=== PATIENT | female | born 1935 | race Caucasian/White ===

== ENCOUNTER 2017-09-06 11:57 | Inpatient (IN) | payer MEDICARE, OTHER ==
[2017-09-06 12:34] LABS: #Lymphocytes 0.9 thou/uL (1.20-3.40); #Monocytes 0.6 thou/uL (0.11-0.59); #Neutrophils 13.5 thou/uL (1.40-6.50); %Eosinophils 0.3 % (0.0-10.0); %Monocytes 3.7 % (0.0-10.0); Hemoglobin 12.7 g/dL (12.0-16.0); Mean Corpuscular HGB CONC 33.1 g/dL (32.0-36.0); Mean Corpuscular Hemoglobin 29.7 pg (27.0-31.0); Mean Corpuscular Volume 89.8 fl (81.0-99.0); Mean Platelet Volume 5.8 fL (7.4-10.4); Platelet Count 248 thou/uL (130-400); RBC Distribution Width 12.3 % (11.5-14.5); Red Blood Cell (RBC) Count 4.29 mill/uL (4.20-5.40)
--- NOTE | 2017-09-06 12:55 | RAD ---
TWO VIEWS OF THE LEFT HIP: Comparison: None. History: Fall, left hip pain. FINDINGS: Two views of the left hip shows destruction of the trabecular markings in the femoral neck and there may be a nondisplaced femoral neck fracture. Surrounding soft tissue swelling is seen. No degenerativ e changes are seen in the left hip joint. IMPRESSION: Left femoral neck fracture. POS: ALEXANDER
[2017-09-06 12:58] LABS: ALT (SGPT) 21 U/L (8-55); AST (SGOT) 24 U/L (5-34); Albumin 3.7 g/dL (3.4-4.8); Alkaline Phosphatase 71 U/L (40-150); Anion Gap 12 mmol/L (10-20); BUN (Urea Nitrogen) 18 mg/dL (9.8-20.1); Bilirubin, Total 0.4 mg/dL (0.2-1.2); Calc. Creatinine Clearance 0 mL/min (70-130); Calcium 8.6 mg/dL (7.8-10.44); Carbon Dioxide 24 mmol/L (23-31); Chloride 104 mmol/L (98-107); Estimated GFR-MDRD 74; Globulin 2.5 g/dL (2.4-3.5); Glucose 114 mg/dL (83-110); Potassium 3.9 mmol/L (3.5-5.1); Protein, Total 6.2 g/dL (6.0-8.3); Sodium 136 mmol/L (136-145)
--- NOTE | 2017-09-06 12:58 | RAD ---
SINGLE VIEW OF THE PELVIS: COMPARISON: None. HISTORY: Fall with left hip pain. FINDINGS: A single view of the left hip shows a fracture of the left femoral neck. Surrounding soft tissue swe lling is seen. No other fractures or dislocations are seen. No degenerative changes are seen in eit her hip. IMPRESSION: Left femoral neck fracture. POS: ANASTASIA
--- NOTE | 2017-09-06 13:00 | RAD ---
SINGLE VIEW OF THE CHEST: COMPARISON: 09/11/06. HISTORY: Fall with left hip fracture. Shortness of breath. FINDINGS: A single view of the chest shows a normal-size cardiomediastinal silhouette. There is a spiculated m ass projecting over the right upper lobe measuring 4.7 cm in greatest dimension. No pleural effusion is seen. IMPRESSION: Right upper lobe spiculated mass. A CT of the chest with contrast is recommended for further evaluat ion. POS: ANASTASIA
[2017-09-06 13:02] LABS: Troponin I Less than 0.010 ng/mL (< 0.028)
[2017-09-06 14:00] LABS: Bilirubin Negative (Negative); Blood, Urine Trace (Negative); Clarity CLEAR (Clear); Glucose, Urine (Dipstick) Negative (Negative); Leukocyte Large (Negative); Nitrite Negative (Negative); Protein, Urine (Dipstick) Negative (Neg-Trace); Specific Gravity, Urine 1.012 (1.002-1.036); pH, Urine 6.5 (5.0-9.0)
[2017-09-06 14:14] LABS: Bacteria/HPF None Seen HPF (None Seen); Hyaline Casts/LPF 0-3 HYALINE CAST LPF (0-3 Hyaline); Pathc Cast-AUWi Flag 0.14 (0-2.49); RBC/HPF 0-3 HPF (0-3); Squamous Epithelial None Seen HPF (0-3)
[2017-09-06] MEDS ORDERED: traMADol HCl 50 MG TAB PO PRN (16:20)
[2017-09-06] MEDS ORDERED: Dextrose 50% Abboject 50 ML SYRINGE SLOW IVP PRN (16:20)
[2017-09-06] MEDS ORDERED: Dextrose 5% in Water 1,000 ML IV PRN (16:20)
[2017-09-06] MEDS ORDERED: Morphine 4 MG/ML VIAL SLOW IVP PRN (16:20)
--- NOTE | 2017-09-06 16:26 | CON ---
DATE OF CONSULTATION: 09/06/2017 CHIEF COMPLAINT: Left hip pain. HISTORY OF PRESENT ILLNESS: Ms. Acevedo is an 82-year-old female who fell. She lost her balance. She landed on her left side. She had difficulty ambulating and had severe pain in the left hip. She was taken to the Emergency Department. X-rays have shown a nondisplaced left femoral neck fracture. Th e patient is active at baseline. She frequently walks for exercise out of the house. She uses a can e, but no walker. She lives independently and still does work outside and inside the house. She rep orts being in fair health recently. She does take oxygen at home at night, but otherwise denies curr ent issues with her health. PAST MEDICAL HISTORY: COPD disease, on home oxygen at night and when she is exercising. Coronary ar isael disease, she sees a instrumentation controls engineer as well as Pulmonary doctor. History of congestive heart failu re. ALLERGIES: No known allergies. MEDICATIONS: Unknown list. SOCIAL HISTORY: The patient denies any tobacco, alcohol or drug use. FAMILY MEDICAL HISTORY: Noncontributory. REVIEW OF SYSTEMS: Positive for left hip pain. She is talkative. She denies other positives on 10- point review of systems. IMAGES: X-rays demonstrate a nondisplaced valgus impacted left femoral neck fracture, otherwise nega tive. PHYSICAL EXAMINATION: VITAL SIGNS: Stable. The patient was found to have a pulse oximetry reading of 92%, this improved w ith oxygen. Blood pressure is 181/85 and temperature is 97.7. GENERAL: She is sitting upright, no apparent distress, talkative. HEENT: The patient is getting nasal cannula oxygen, otherwise atraumatic. RESPIRATORY: Again, on oxygen, but breathing comfortably. MUSCULOSKELETAL: The patient's right lower extremity is atraumatic. The left lower extremity has pa in with motion. She is sitting with her hips flexed. She is neurovascularly intact in the foot and ankle and has a palpable dorsalis pedis pulse. IMPRESSION: Left femoral neck fracture in an elderly female. PLAN: At this point, I had a long discussion with the patient regarding treatment options, these wou ld be nonoperative versus surgical. Surgical stabilization will give her likely the best outcome, so that she does not go on to have displacement of her femoral neck fracture and she can mobilize weigh tbearing as tolerated. We can do percutaneous screw fixation hopefully under local anesthetic or a s aric anesthetic. She will be optimized for surgery. She will have adequate pain control and DVT pr ophylaxis. She will have antibiotic prophylaxis. Pulmonary treatment is needed. We will continue o xygen.
[2017-09-06] MEDS ORDERED: Ibuprofen 600 MG TAB PO SCH (16:30)
[2017-09-06] MEDS ORDERED: Water For Inject, Bacteriostat 30 ML ONE (16:33)
[2017-09-06 17:24] LABS: Troponin I 0.062 ng/mL (< 0.028)
--- NOTE | 2017-09-06 18:52 | HP ---
DATE OF ADMISSION: 09/06/2017 ADMITTING PHYSICIAN: Sachin Smith DO CONSULTING PHYSICIAN: Anoop Doherty M.D. CHIEF COMPLAINT: Left hip pain, status post ground level fall. HISTORY OF PRESENT ILLNESS: Mrs. Acevedo is an 82-year-old female with history of hypertension, COPD on home oxygen, possibly congestive heart failure, who was in her usual state of health this morning wh en she got caught on her oxygen cord and tripped, landing on her left side. She felt immediate pain to her left side. She denies head trauma or loss of consciousness. She was able to call her grandso n, who came and assisted her in getting up. She was transported by ground EMS [facility] she was evaluated and found to have a left nondisplaced femoral neck fracture. She was also found to have a urinary tract infection as well as an incidentally discovered pulmonary mass, which was daniel cribed as a spiculated measuring 4.7 cm in the right lung. Upon admission to the ED, the patient was noted to be hypoxic in the low 80s, requiring 4 liters nasa l cannula oxygen. Her sats improved to approximately 95% on 4 liters. However, the patient did cont inue to show signs of respiratory distress including a marked accessory muscle use and lip pursing. The patient reports that she only uses 1.5 liters oxygen at home and that she is able to do without i t entirely except at night and when she is being active. Given her respiratory distress, she was sta rted on a nebulizer treatment in the emergency room, which did improve her work of breathing somewhat . Dr. Anoop Doherty of Orthopedics was consulted for surgical management of her left hip. [facility] was asked to admit. Given her respiratory distress and overall state of health, the decis ion was made to admit the patient to the Intermediate Care Unit. Upon exam, the patient reports that her pain is mild and located exclusively in the left hip and left groin region. She denies radiating pain, numbness or tingling. She had initially reported chest pa in to the ER physician, but denied chest pain upon my exam. She denied dizziness, lightheadedness, n ausea or vomiting. HOME MEDICATIONS: Her home medications include atorvastatin 10 mg, lorazepam 0.5 mg, furosemide 20 m g, prednisone 5 mg, metoprolol succinate 25 mg, Eliquis 2.5 mg, and hydroxyzine 10 mg. PAST MEDICAL HISTORY: The patient reports a history of chronic obstructive pulmonary disease as well as heart problems. She is unable to state exact nature of her heart problems, but said she sees Dr. Robert Perea in Cardiology. PAST SURGICAL HISTORY: The patient reports a remote history of appendectomy as well as a remote hist ory of gum surgery. ALLERGIES: The patient denies any known drug allergies. SOCIAL HISTORY: The patient reports a [id number] history of smoking. She reports quitting 4 years ago. She does endorse occasional alcohol use approximately two times a year. She denies other drug use. She lives at home in a one story house. CODE STATUS: The patient reports her code status is FULL CODE. REVIEW OF SYSTEMS: A 10 point review of systems was negative except as mentioned in the HPI. PHYSICAL EXAMINATION: VITAL SIGNS: Blood pressure 125/79, pulse 84, respirations 24, temperature 99.1, O2 sat 96% on 4 lit ers. GENERAL APPEARANCE: The patient is a somewhat frail appearing elderly female, who appears to be in m oderate to severe respiratory distress. HEENT: Normocephalic and atraumatic. Eyes: Pupils are equal, round, and reactive to light and acco mmodation. Extraocular movements are intact. Ears: Atraumatic. Nose: Nares patent without discha rge. Mouth: Atraumatic. She is edentulous with upper and lower dentures. NECK: Trachea is midline. No cervical spine tenderness. RESPIRATORY: She has bilateral wheezes. No rales or rhonchi. She has a nasal cannula in place up t o 4 liters. She has marked accessory muscle use. CARDIOVASCULAR: She has a regular rate and rhythm. No murmurs, gallops or rubs were auscultated. ABDOMEN: Her abdomen was soft, nontender and nondistended. She has positive bowel sounds. EXTREMITIES: The patient is neurovascularly intact x4. She has no dependent edema. She has some te nderness to palpation over the greater trochanter on her left leg. SKIN: Her skin is warm and dry. No ecchymosis, no abrasions. NEUROLOGIC: The patient's GCS is 15. She has no focal deficits. PSYCHIATRIC: She is alert and oriented x3. LABORATORY DATA: Significant for elevated white blood cell count of 15. Her chemistry profile is es sentially unremarkable. Her cardiac enzymes are significant for an elevated CK-MB of 10. She has a normal troponin at less than 0.010. She does have an elevated BNP of 235.5. Her liver function test s are unremarkable. IMAGING: Chest x-ray: Right upper lobe spiculated mass. CT of the chest with contrast is recommended for fur ther evaluation. Pelvis x-ray: Left femoral neck fracture. Hip x-ray. Left femoral neck fracture. ASSESSMENT: 1. Left femoral neck fracture. 2. Chronic obstructive pulmonary disease exacerbation. 3. Elevated CK-MB with abnormal EKG. 4. Urinary tract infection. 5. Meets systemic inflammatory response syndrome criteria for sepsis. 6. History of hypertension, present on admission. PLAN: 1. Admit to CU. 2. Start Solu-Medrol 40 mg IVP q.6 hours. 3. Pulmicort and Brovana per recommendation of Dr. Higginbotham. I appreciate recommendations. 4. Bactrim for UTI. 5. We will trend troponins at 3 and 6 hours. 6. The patient meets systemic inflammatory response syndrome criteria for sepsis. We will continue to monitor vital signs and fluid status with strict ins and outs. 7. Plan will be to go to the OR with Dr. Doherty tomorrow for screw fixation of her left hip as lo ng as she is medically stable. This patient was seen and examined along with Dr. Sachin Smith, who agrees with the assessment and p
--- NOTE | 2017-09-06 19:27 | CON ---
DATE OF CONSULTATION: 09/06/2017 CONSULTING PHYSICIAN: Sachin Smith D.O. REASON FOR CONSULTATION: COPD. HISTORY OF THE PRESENT ILLNESS: The patient is an 82-year-old female with severe COPD managed. She came in today after a hip fracture. She is typically managed over in [place] by Dr. Cordero. She is on home oxygen at 2-4 liters nasal cannula 24 hours daily. She smoked up until 4 years ago. She does very poor at home at baseline. She says she uses nebulization therapy, but does not know her other medications. PAST MEDICAL HISTORY: 1. COPD. 2. Coronary artery disease. ALLERGIES: None. FAMILY MEDICAL HISTORY: List is not available for review. SOCIAL HISTORY: Quit smoking 4 years ago. Does not consume alcohol. REVIEW OF SYSTEMS: A 10-point review of systems otherwise negative. PHYSICAL EXAMINATION: VITAL SIGNS: Heart rate 92, O2 sat 92% on 4 liters, pulse 111 and respirations 18. HEENT: Unremarkable. NECK: No JVD. LUNGS: Diffuse wheezing bilaterally. CARDIOVASCULAR: S1 and S2 regular. ABDOMEN: Soft and nontender. EXTREMITIES: No clubbing, cyanosis or edema. She has severe muscle wasting. LABORATORY AND IMAGING DATA: Sodium 136, potassium 3.9, chloride 104, CO2 of 24 , BUN 18, creatinine 0.7, glucose 114 and troponin 0.06. White blood cell count 15, hematocrit 38.5 and platelet count 248. Chest x-ray demonstrates a 47 mm mass-like density in the right upper lobe. This ultimately needs to be further worked up with a CT of the chest. Film was personally reviewed by myself. ASSESSMENT: 1. Lung mass. 2. Chronic obstructive pulmonary disease exacerbation. 3. Hip fracture. PLAN: 1. CT of the chest. Further workup for lung mass. 2. Nebulization treatments, IV steroids and low flow oxygen. 3. She is at high risk for any kind of planned surgery that needs to be understood before undertaking the procedure. I do not think she is quite medically stable from a pulmonary standpoint to have this done yet. 4. The fracture may be malignant in nature. Therefore, we will check the CT scan at the latest by tomorrow. 70 min time was spent on this consult. Of that time, >50% was spent with the patient and/or on the patients unit. DEE DEE
[2017-09-06 20:04] LABS: Troponin I 0.132 ng/mL (< 0.028)
--- NOTE | 2017-09-06 20:40 | CT ---
CT THORAX WITHOUT CONTRAST: INDICATIONS: History of right lung mass. COMPARISON: Chest radiograph dated 09/06/2017. FINDINGS: There is an area of air space consolidation within the right upper lobe, likely corresponding to a ra diographic abnormality. An additional focus of air space consolidation is seen within the right lowe r lobe. There is superimposed severe emphysema. There are prominent vascular calcifications involving the thoracic aorta and coronary arteries. The ascending aorta is mildly ectatic, measuring 2.7 cm. The aortic arch measures 3.6 cm. The descendin g thoracic aorta measures approximately 3 cm. There is a small pericardial effusion. There is a small hiatal hernia. There is diffuse osteopenia. There is mild thoracolumbar scoliosis. There is a small superior endplate compression abnormality of T5, of undetermined chronicity. IMPRESSION: 1. Areas suspicious for multifocal pneumonia involving the right upper lobe and right lower lobe. R ecommend CT followup to resolution. 2. There is severe chronic obstructive pulmonary disease. 3. 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 4. Age indeterminate T5 superior endplate compression abnormality. POS: ANASTASIA
[2017-09-06] MEDS: Acetaminophen 500 MG TAB PO SCH ×2 (21:06→23:58)
[2017-09-06] MEDS: traMADol HCl 50 MG TAB PO SCH ×2 (21:06→23:58)
[2017-09-06] MEDS: Famotidine 20 MG TAB PO SCH (21:08)
[2017-09-06] MEDS: Sulfameth/Trimethoprim DS 800-160mg TAB PO SCH (21:08)
[2017-09-06] MEDS: Ibuprofen 200 MG TAB PO SCH ×2 (21:31→23:58)
[2017-09-06] MEDS: Ondansetron ODT 4 MG TAB PO PRN (21:51)
[2017-09-06] MEDS: Arformoterol 15 MCG/2 ML NEB NEB SCH (22:10)
[2017-09-06] MEDS: Budesonide 0.5 MG/2 ML NEB INH SCH (22:10)
--- NOTE | 2017-09-06 22:48 | PRG ---
DATE OF SERVICE: 09/06/2017 SUBJECTIVE: Ms. Baeza is an 82-year-old female who reportedly was admitted this afternoon status pos t ground level fall, when she sustained a left femoral neck fracture. The patient has just been move d from the emergency room up to the [facility], and she is just now getting settled in. The patient has be en evaluated by the primary trauma team and Dr. Higginbotham who is evaluating her for her chronic respira tory condition and one mass that was noted on her CTs. At this time, the patient has no complaints. She is extremely talkative and is only concerned with having her sleeping pills. Otherwise, we will check back with the patient once she has gotten settled in, the nurses are able to do their full ass essment and get her vitals, but by report, she had no issues in the emergency department and her oxyg en saturation staying in the 90s on 4 liters via nasal cannula.
[2017-09-07 04:48] LABS: #Lymphocytes 0.6 thou/uL (1.20-3.40); #Monocytes 0.1 thou/uL (0.11-0.59); #Neutrophils 8.4 thou/uL (1.40-6.50); %Eosinophils 0.3 % (0.0-10.0); %Lymphocytes 6.6 % (21.0-51.0); %Monocytes 1.2 % (0.0-10.0); Hemoglobin 12.4 g/dL (12.0-16.0); Mean Corpuscular HGB CONC 33.3 g/dL (32.0-36.0); Mean Corpuscular Hemoglobin 29.8 pg (27.0-31.0); Mean Corpuscular Volume 89.5 fl (81.0-99.0); Mean Platelet Volume 6.5 fL (7.4-10.4); Platelet Count 238 thou/uL (130-400); RBC Distribution Width 12.2 % (11.5-14.5); Red Blood Cell (RBC) Count 4.15 mill/uL (4.20-5.40); White Blood Cell (WBC) Count 9.1 thou/uL (4.8-10.8)
[2017-09-07 05:13] LABS: Anion Gap 13 mmol/L (10-20); BUN (Urea Nitrogen) 23 mg/dL (9.8-20.1); Calc. Creatinine Clearance 34 mL/min (70-130); Calcium 8.6 mg/dL (7.8-10.44); Carbon Dioxide 25 mmol/L (23-31); Chloride 103 mmol/L (98-107); Estimated GFR-MDRD 54; Glucose 186 mg/dL (83-110); Potassium 4.3 mmol/L (3.5-5.1); Sodium 137 mmol/L (136-145)
[2017-09-07] MEDS: Ibuprofen 200 MG TAB PO SCH ×3 (05:36→18:29)
[2017-09-07] MEDS: Acetaminophen 500 MG TAB PO SCH ×3 (05:36→18:29)
[2017-09-07] MEDS: traMADol HCl 50 MG TAB PO SCH ×3 (05:36→18:29)
[2017-09-07 07:15] LABS: CKMB 5.1 ng/mL (0-6.6); Troponin I 0.127 ng/mL (< 0.028)
[2017-09-07] MEDS: Arformoterol 15 MCG/2 ML NEB NEB SCH ×2 (07:55→18:32)
[2017-09-07] MEDS: Budesonide 0.5 MG/2 ML NEB INH SCH ×2 (08:00→18:32)
[2017-09-07] MEDS ORDERED: Prevnar 13-Val Conj/PF 0.5 ML SYRINGE IM ONE (09:00)
[2017-09-07] MEDS: Famotidine 20 MG TAB PO SCH ×2 (09:03→21:19)
[2017-09-07] MEDS: Sulfameth/Trimethoprim DS 800-160mg TAB PO SCH (09:03)
--- NOTE | 2017-09-07 09:47 | PDOC.PULPN ---
Progress Note: Subj/Obj - Subjective Date: 09/07/17 Time: 09:45 Narrative: no change - Objective Allergies/Adverse Reactions: Allergies Allergy/AdvReac Type Severity Reaction Status Date / Time No Known Drug Allergies Allergy Verified 09/07/17 03:40 MAR Reviewed: Yes Vital Signs: Vital Signs Temp 96.8 F L 09/07/17 07:19 Pulse 71 09/07/17 09:00 Resp 20 09/07/17 09:00 BP 112/55 L 09/07/17 09:00 Pulse Ox 91 L 09/07/17 09:00 Intake & Output 09/06/17 09/07/17 09/07/17 18:59 06:59 18:59 Intake Total 500 Balance 500 Weight 109 lb 1.6 oz Intake: Oral 500 Other: Voiding Method Diaper # Urine Diapers 4 Progress Note: Exam - Physical Exam Constitutional: NAD HEENT: PERRLA Neck: no nodes, no JVD Cardiovascular: RRR Focused Respiratory Location: decreased breath sounds: Right, Left Gastrointestinal: soft, non-tender Musculoskeletal: no edema Psychiatric: normal affect, A&O x 3 Skin: no rash Progress Note: Data - Labs Result Diagrams: 09/07/17 04:26 09/07/17 04:26 - Radiology Interpretation CT scan - chest Status: image reviewed by me (looks like old scarring in RUL, doubt cancer.) Progress Note: A/P - Problems (1) Chronic obstructive pulmonary disease with acute exacerbation Current Visit: Yes Status: Acute Code(s): J44.1 - CHRONIC OBSTRUCTIVE PULMONARY DISEASE W (ACUTE) EXACERBATION (2) Hip fracture Current Visit: Yes Status: Acute Code(s): S72.009A - FRACTURE OF UNSP PART OF NECK OF UNSP FEMUR, INIT - Plan Plan: High risk from pulmonary standpoint for surgery, but risk unlikely to improve with time. D/w ortho team Continue nebs and steroids further f/u with pulm in [place]
--- NOTE | 2017-09-07 10:48 | CT ---
CT THORAX WITH IV CONTRAST: 09/07/2017 HISTORY: Follow-up evaluation. Right lung mass. COMPARISON: 09/06/2017 FINDINGS: There are stable areas of parenchymal opacities within the right upper lobe and in the right lower lo be, which are unchanged from prior study one day ago. There are tiny bilateral pleural effusions, wh ich do appear slightly increased from prior exam, with associated passive atelectasis. Emphysematous changes are again seen. There is minimal patchy density seen in the left upper lobe, a djacent to the major fissure, which could be related to mild volume loss. This is also stable from p rior exam. Vascular calcifications are again seen in the coronary arteries and involving the thoracic aorta. Ec mary of the ascending thoracic aorta is again present. Tiny pericardial effusion is again noted. A small hiatal hernia is present. Degenerative changes are again seen in the spine, with stable superior endplate compression abnormali ty of T5 again present. Again, the exact age is indeterminate. IMPRESSION: 1. Findings again most suspicious for multifocal pneumonia involving the right upper and lobes; otero delvis, followup to complete resolution is recommended to exclude a neoplastic process. 2. Tiny bilateral pleural effusions, which have increased from prior exam. 3. Stable ectasia of the thoracic aorta with vascular calcifications again seen in the thoracic aort a and coronary arteries. 4. Tiny pericardial effusion. 5. Age indeterminate T5 superior endplate compression abnormality. POS: ANASTASIA
[2017-09-07] MEDS ORDERED: CEFAZOLIN/Water 2 GM/20 ML SYRINGE SLOW IVP SCH (12:00)
[2017-09-07] MEDS ORDERED: CEFAZOLIN/Water 2 GM/20 ML SYRINGE ONE (15:30)
[2017-09-07] MEDS ORDERED: ISOVUE-370 76%-LOCM 1 ML ONE (16:05)
[2017-09-07] MEDS ORDERED: Ondansetron HCl/PF 4 MG/2 ML Vial IVP PRN ×4 (16:16→17:05)
[2017-09-07] MEDS ORDERED: Midazolam HCl 2 mg/2 ml Vial ONE (16:22)
[2017-09-07] MEDS ORDERED: Ketamine 50 MG/ML VIAL ONE (16:27)
[2017-09-07] MEDS ORDERED: Hydrocortisone Sod Succ/PF 100 mg/2 ml Vial ONE ×2 (16:27→16:46)
[2017-09-07] MEDS ORDERED: Bupivacaine HCl 0.5%/Epinephrine 1:200,000/PF 30 ml Vial ONE (16:34)
[2017-09-07] MEDS ORDERED: PROPOFOL 200 MG/20 ML VIAL ONE (16:46)
[2017-09-07] MEDS ORDERED: Lidocaine 1% PF 5 ML VIAL ONE (16:46)
[2017-09-07] MEDS ORDERED: Promethazine HCl 25 MG/ML VIAL IM PRN ×2 (17:05)
[2017-09-07] MEDS ORDERED: Promethazine HCl 25 MG/ML VIAL SLOW IVP PRN ×2 (17:05)
--- NOTE | 2017-09-07 17:07 | PRG ---
DATE OF SERVICE: 09/07/2017 SUBJECTIVE: I saw Ms. Acevedo this morning. She reports no dyspnea, chest pain or syncope. She was on nasal cannula oxygen and discussion with the family members at bedside. She has remained hemodynami juan stable since last night. She is currently on bowel rest pending surgical intervention today. OBJECTIVE: VITAL SIGNS: This morning includes, blood pressure 112/55, pulse 71, respiratory rate is 20, tempera ture 96.8 degrees Fahrenheit, oxygen saturation 94% on 3 liters by nasal cannula oxygen. HEENT: Reveals normocephalic and atraumatic. The pupils are equal, round, and reactive to light and accommodation. She has no jugular venous distention noted. HEART: Reveals regular rate and rhythm. No murmurs or gallops auscultated. LUNGS: Scattered bilateral rhonchi. Breathing regular and unlabored. EXTREMITIES: Reveal 2+ radial and pedal pulses bilaterally. No ankle edema is present. NEUROLOGIC: Reveals no focal deficits present. LABORATORY DATA: Today includes a CBC with 9100 white blood cells, hemoglobin and hematocrit stable at 12.4 and 37.2 respectively. Platelet count is stable at 238,000. Metabolic profile: Sodium 137, potassium is 4.3, chloride is 103, bicarbonate is 25, BUN 23, creatinine 0.99, glucose 186. I have personally reviewed the CT scan of the chest, which was obtained today and this shows multifocal pulm onary consolidations involving the right lobe. Also noted small bilateral pleural effusions. IMPRESSION: 1. Post-injury day #1 status post ground level fall. 2. Left femoral neck fracture. 3. Resolving acute chronic obstructive pulmonary disease exacerbation. 4. Stable acute urinary tract infection. 5. Likely acute right lobe pneumonia versus pulmonary neoplasm. PLAN: 1. Continue broad-spectrum antibiotic therapy as well as steroid and bronchodilator therapy. 2. The patient is certainly stable to proceed with operative interventions to the femoral neck fract ure. I discussed with orthopedic surgeon, who is planning for minimally invasive operative intervent ions which not include general anesthesia. Above findings and plan have been discussed with the patient who indicates understanding of the infor mation given. I answered her questions.
--- NOTE | 2017-09-07 17:51 | OP ---
DATE OF PROCEDURE: 09/07/2017 OPERATION: Left femoral neck fracture, percutaneous pinning. PREOPERATIVE DIAGNOSIS: Left femoral neck fracture. POSTOPERATIVE DIAGNOSIS: Left femoral neck fracture. COMPLICATIONS: None. ESTIMATED BLOOD LOSS: Minimal. SURGEON: Anoop Doherty M.D. ANESTHESIA: Local plus regional block. IMPLANTS: Three 6.5 mm cannulated screws from [employer] were used. INDICATIONS: Ms. Acevedo is an 82-year-old female who fractured her left hip after a fall. She was ind icated for percutaneous screw fixation of the femoral neck fracture. This stabilized the fracture an d allowed early mobilization. Risks have been reviewed in detail. She has elected to proceed with t he operation. DESCRIPTION OF PROCEDURE: Ms. Acevedo was identified in the preoperative holding area. Her correct ext remity was marked. She was carried to the operating room. She was positioned supine. General anest hesia was induced. A multidisciplinary timeout was performed. The left lower extremity was prepped and draped in sterile fashion. At this point, we began the procedure after evaluating the hip with intraoperative x-rays. We pulled traction and rotated the leg back into an anatomic position. At this point, we made a small incisio n over the lateral thigh after local anesthetic was injected. We then inserted 3 guidewires using in traoperative fluoroscopy. These were placed in an inverted triangle pattern. Once these were approp riately seated on orthogonal images, we overdrilled the guidewires. We then measured an appropriate length. At this point, our cannulated screws were placed sequentially. Again, we checked images aft er hardware was placed. We then thoroughly irrigated. We then closed with a 2-0 Vicryl suture follo wed by pili for the skin. A sterile dressing was applied at this point. The patient was taken to the recovery room in good condition without complication.
[2017-09-07] MEDS: Piperacillin/Tazobactam 3.375 GM in Sodium Chloride 0.9% 100 ML IVPB SCH ×2 (18:29→23:28)
--- NOTE | 2017-09-07 19:03 | RAD ---
THREE VIEWS OF THE LEFT HIP: 09/07/17 INDICATION: Left hip pain. COMPARISON: Prior exam dated 09/06/17. FINDINGS: Since the comparison examination, there has been interval percutaneous pinning of the patient's subc apital left femoral neck fracture. Total fluoroscopic time was 26.2 seconds. Total exposure of 3.38 mGy. IMPRESSION: Postoperative left hip. POS: ANASTASIA
[2017-09-07] MEDS: CEFAZOLIN/Water 2 GM/20 ML SYRINGE SLOW IVP SCH (21:19)
--- NOTE | 2017-09-07 23:07 | PRG ---
DATE OF SERVICE: 09/07/2017 ATTENDING PHYSICIAN: Sachin Smith DO SUBJECTIVE: Ms. Pineda is an 82-year-old female who was admitted one day ago, status post ground level fall sustaining a left femoral neck fracture. She is postoperative day #0, status post fixation of her hip. She is now seen postoperatively in the [facility]. She denies pain or respiratory difficulties. OBJECTIVE: VITAL SIGNS: Temperature 98.7, pulse 95, respirations 19, O2 sat 91% on 4 liters nasal cannula, bloo d pressure 133/81. CONSTITUTIONAL: Elderly female lying in bed, in no acute distress. PULMONARY: Bilateral breath sounds clear. No respiratory distress. CARDIOVASCULAR: Regular rate and rhythm. Heart sounds normal. EXTREMITIES: Surgical dressing intact to left hip. Cap refill brisk in all extremities. 2+ pulses in all extremities. ASSESSMENT: 1. Status post ground level fall. 2. Status post open reduction and internal fixation, left hip, postoperative day #0. 3. Chronic obstructive pulmonary disease, Pulmonary Medicine following. PLAN: 1. Continue [facility] care and recommendations per Pulmonary Medicine Service. 2. PT, OT. 3. BiPAP p.r.n. at night as needed.
[2017-09-08] MEDS: Acetaminophen 500 MG TAB PO SCH ×4 (00:07→17:28)
[2017-09-08] MEDS: traMADol HCl 50 MG TAB PO SCH ×4 (00:07→17:27)
[2017-09-08] MEDS: Ibuprofen 200 MG TAB PO SCH ×4 (00:08→17:27)
[2017-09-08] MEDS: Piperacillin/Tazobactam 3.375 GM in Sodium Chloride 0.9% 100 ML IVPB SCH (05:42)
[2017-09-08] MEDS: CEFAZOLIN/Water 2 GM/20 ML SYRINGE SLOW IVP SCH (05:43)
[2017-09-08 07:49] LABS: #Lymphocytes 0.6 thou/uL (1.20-3.40); #Monocytes 0.4 thou/uL (0.11-0.59); #Neutrophils 11.7 thou/uL (1.40-6.50); %Eosinophils 0.2 % (0.0-10.0); %Lymphocytes 4.4 % (21.0-51.0); %Monocytes 3.5 % (0.0-10.0); %Neutrophils 91.9 % (42.0-75.0); Hemoglobin 11.8 g/dL (12.0-16.0); Mean Corpuscular HGB CONC 32.3 g/dL (32.0-36.0); Mean Corpuscular Hemoglobin 29.6 pg (27.0-31.0); Mean Corpuscular Volume 91.7 fl (81.0-99.0); Mean Platelet Volume 6.4 fL (7.4-10.4); Platelet Count 291 thou/uL (130-400); RBC Distribution Width 12.2 % (11.5-14.5); Red Blood Cell (RBC) Count 3.97 mill/uL (4.20-5.40); White Blood Cell (WBC) Count 12.8 thou/uL (4.8-10.8)
--- NOTE | 2017-09-08 07:49 | PDOC.PULPN ---
Progress Note: Subj/Obj - Subjective Date: 09/08/17 Time: 07:49 Narrative: Feels better. Pain well controlled - ROS All systems: reviewed and no additional remarkable complaints except as stated - Objective Allergies/Adverse Reactions: Allergies Allergy/AdvReac Type Severity Reaction Status Date / Time No Known Drug Allergies Allergy Verified 09/07/17 03:40 MAR Reviewed: Yes Vital Signs: Vital Signs Temp 97.3 F L 09/08/17 07:18 Pulse 64 09/08/17 07:18 Resp 19 09/08/17 07:18 BP 142/72 H 09/08/17 07:18 Pulse Ox 100 09/08/17 07:18 Intake & Output 09/07/17 09/08/17 09/08/17 18:59 06:59 18:59 Intake Total 240 860 Balance 240 860 Weight 109 lb 1.6 oz 108 lb 2 oz Intake: Intake, IV Amount 260 Oral 240 600 Other: Voiding Method Diaper Diaper # Urine Diapers 3 Progress Note: Exam - Physical Exam Constitutional: NAD HEENT: PERRLA Neck: no nodes, no JVD Cardiovascular: RRR Focused Respiratory Location: decreased breath sounds: Right, Left Gastrointestinal: soft, non-tender Musculoskeletal: no edema Neurological: non-focal Psychiatric: normal affect, A&O x 3 Skin: no rash Progress Note: Data - Labs Result Diagrams: 09/07/17 04:26 09/07/17 04:26 Progress Note: A/P - Problems (1) Chronic obstructive pulmonary disease with acute exacerbation Current Visit: Yes Status: Acute Code(s): J44.1 - CHRONIC OBSTRUCTIVE PULMONARY DISEASE W (ACUTE) EXACERBATION (2) Hip fracture Current Visit: Yes Status: Acute Code(s): S72.009A - FRACTURE OF UNSP PART OF NECK OF UNSP FEMUR, INIT - Plan Plan: The findings on CT are likely chronic in nature, and I doubt it represents acute pneumonia. She has a history of abnormalities on previous CT scans in [place] and this is being followed by Dr. Rubio (her foreclosure field inspector in [place]). It is reasonable to give her maybe 5 days of ABX, and I think she could be switched to Augmentin 500 mg BID, once we are confident she can take po ABX. Her COPD symptoms are controlled on ALB/IPRAT and Brovana/Pulmicort. I think it is safe to reduce steroid dose. OK to move toward rehab at anytime.
[2017-09-08] MEDS: Arformoterol 15 MCG/2 ML NEB NEB SCH ×2 (08:02→19:24)
[2017-09-08] MEDS: Budesonide 0.5 MG/2 ML NEB INH SCH ×2 (08:02→19:21)
[2017-09-08 08:07] LABS: Anion Gap 15 mmol/L (10-20); BUN (Urea Nitrogen) 35 mg/dL (9.8-20.1); Calc. Creatinine Clearance 25 mL/min (70-130); Calcium 8.7 mg/dL (7.8-10.44); Carbon Dioxide 27 mmol/L (23-31); Chloride 103 mmol/L (98-107); Estimated GFR-MDRD 39; Glucose 132 mg/dL (83-110); Magnesium 2.4 mg/dL (1.6-2.6); Phosphorus 4.4 mg/dL (2.3-4.7); Potassium 3.6 mmol/L (3.5-5.1); Sodium 141 mmol/L (136-145)
[2017-09-08] MEDS ORDERED: Lorazepam 0.5 MG TAB PO SCH (09:00)
--- NOTE | 2017-09-08 10:58 | PRG ---
DATE OF SERVICE: 09/08/2017 SUBJECTIVE: Ms. Acevedo is an 82-year-old woman who is postoperative day #1 today status post ORIF of l eft femoral neck fracture. The patient is awake and alert. Her daughter is at bedside. She reports adequate pain control. She is visibly upset mourning the loss of son. She denies any dyspnea, sync ope or chest pain. A 2D echocardiography yesterday revealed normal LV function with ejection fractio n 55%-60%. She had some diastolic dysfunction noted with no wall motion abnormalities. She has adeq uate urinary output overnight. PHYSICAL EXAMINATION: VITAL SIGNS: Currently includes blood pressure 130/85, pulse is 90 and irregular, respiratory rate i s 16, temperature 97.3 degrees Fahrenheit, oxygen saturation is currently 96% on 4 liters by nasal ca nnula oxygen. HEENT: Reveals normocephalic and atraumatic. Pupils are equal, round, and reactive to light and acc ommodation. Extraocular muscles are intact bilaterally. She has no sclerae icterus present. Oral m ucosa is pink and moist. No lesions are noted. NECK: Supple. No palpable lymphadenopathy or thyromegaly present. HEART: Reveals irregular rate and irregular rhythm, the rate is controlled. LUNGS: Reveals scattered rhonchi. Breathing regular and unlabored. ABDOMEN: Soft, nontender, nondistended. Bowel sounds in all four quadrants appear normoactive. NEUROLOGIC: Reveals no focal deficits present. LABORATORY FINDINGS: Includes a CBC with 12,800 white blood cells, hemoglobin and hematocrit stable at 11.8 and 36.4 respectively. Platelet count is 291,000. Metabolic profile: Sodium 141, potassium is 3.6, chloride is 103, bicarbonate is 27, BUN 35, creatinine is 1.30, glucose is 132, magnesium 2. 4. Phosphorus is 4.4. IMPRESSION: 1. Postoperative day #1, status post open reduction internal fixation left femoral neck fracture. 2. Resolved acute chronic obstructive pulmonary disease exacerbation. 3. Acute kidney injury. 4. Acute hypokalemia. PLAN: 1. Correct abnormal electrolytes. 2. Initiate physical and occupational therapy. 3. Continue with gentle fluid resuscitation. Monitoring the urinary output and renal function as en dpoint of resuscitation. 4. We will ask PM&R to evaluate the patient for possible inpatient rehabilitation post-discharge. Above findings and plan discussed with the patient who indicates understanding of the information giv en. I have answered her questions.
--- NOTE | 2017-09-08 11:48 | PQF ---
Date: 09-08-17 ATTN: DR. CYNTHIA SAWYER Please exercise your independent, professional judgment in responding to the clarification form. Clinical indicators are provided on the bottom of this form for your review Please check appropriate box(s): [ ] Protein Calorie Malnutrition: [ ] Mild [ x ] Moderate [ ] Severe [ ] Cachexia [ ] Other diagnosis [ ] Unable to determine In addition, please specify: Present on Admission (POA): [ x] Yes [ ] No [ ] Unable to determine CLINICAL INDICATORS - SIGNS / SYMPTOMS / LABS BMI of 18.[address] KELLY 09-06-17: SHE HAS SEVERE MUSCLE WASTING. 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 2) Once diet is advanced, supplement with Ensure Enlive PRN for intake less than 50% of a meal. Moderate Malnutrition (in acute illness) Energy Intake: <75% of estimated energy requirement for > 7 days Weight Loss: 1-2%/1 week; 5%/ 1 month; 7.5%/3 months Other: mild body fat loss; mild muscle mass loss; mild fluid accumulation; Severe Malnutrition (in acute illness) Energy Intake: < 50% of estimated energy requirement for > 5 days Weight Loss: >1-2%/1 week; >5%/1 month; >7.5%/3 months Other: moderate body fat loss; moderate muscle mass loss; moderate- severe fluid accumulation; measurably reduced wire basket maker strength Moderate Malnutrition (in chronic illness) Energy Intake: <75% of estimated energy requirement for >1 month Weight Loss: 5%/1 month; 7.5%/3 months; 10%/6 months; 20%/1 year Other: mild body fat loss; mild muscle mass loss; mild fluid accumulation Severe Malnutrition (in chronic illness) Energy Intake: <75% of estimated energy requirement for >1 month Weight Loss: >5%/1 month; >7.5%/3 months; >10%/6 months; >20%/1 year Other: severe body fat loss; severe muscle mass loss; severe fluid accumulation ; measurably reduced wire basket maker strength (This form is maintained as a part of the permanent medical record) 2014 [employer]. All Rights Reserved [email or web address] Office: [phone] [facility]OSPITALThierno
--- NOTE | 2017-09-08 12:10 | PQF ---
DATE: 09-08-17 ATTN: DR. CYNTHIA SAWYER Please exercise your independent, professional judgment in responding to the clarification form. Clinical indicators are provided on the bottom of this form for your review Please check appropriate box(s) to clarify if the following diagnosis has been ruled in or ruled out: PNEUMONIA [ ] Ruled in diagnosis [ x ] Continue to treat [ ] Resolved [ ] Ruled out diagnosis [ ] Other diagnosis [ ] Unable to determine In addition, please specify: Present on Admission (POA): [ x ] Yes [ ] No [ ] Unable to determine For continuity of documentation, please document condition throughout progress notes and discharge summary. Thank You. CLINICAL INDICATORS - SIGNS / SYMPTOMS / LABS H&P: SHE HAS BILATERAL WHEEZES, SHE HAS MARKED ACCESSORY MUSCLE USE WBC: 09-06-17: 15.[address] SAWYER 09-07-17: LIKELY ACUTE RIGHT LOBE PNEUMONIA VERSUS PULMONARY NEOPLASM CXR 09-07-17: FINDINGS AGAIN MOST SUSPICIOUS FOR MULTIFOCAL PNEUMONIA INVOLVING THE RIGHT UPPER AND LOBES, HOWEVER, FOLLOW UP TO COMPLETE RESOLUTION IS RECOMMENDED TO EXCLUDE A NEOPLASTIC PROCESS. CONSULT NOTE DR. KELLY 09-08-17: THE FINDINGS ON CT ARE LIKELY CHRONIC IN NATURE, AND I DOUBT IT REPRESENTS ACUTE PNEUMONIA. RISK FACTORS: H&P: HX OF COPD ON HOME O2, CHF, SMOKER, CAD CONSULT NOTE DR. KELLY 09-08-17: SHE HAS A HX OF ABNORMALITIES ON PREVIOUS CT SCANS IN [place] AND THIS IS BEING FOLLOWED BY DR. [place]. TREATMENTS: PN DR. SAWYER 09-07-17: CONTINUE BROAD-SPECTRUM ANTIBIOTIC THERAPY WELL STEROID AND BRONCHODILATOR THERAPY. (MAR) ANCEF, ZOSYN, BACTRIM DS, AUGMENTIN (This form is maintained as a part of the permanent medical record) 2014 [email or web address]. All Rights Reserved [email or web address] Office: [phone] [facility]
--- NOTE | 2017-09-08 12:19 | PQF ---
DATE: 09-08-17 ATTN: DR. CYNTHIA SAWYER Please exercise your independent, professional judgment in responding to the clarification form. Clinical indicators are provided on the bottom of this form for your review Please check appropriate box(s) to clarify if the following diagnosis has been ruled in or ruled out: SEPSIS [ ] Ruled in diagnosis [ ] Continue to treat [ ] Resolved [ ] Ruled out diagnosis [ ] Other diagnosis [ x ] Unable to determine In addition, please specify: Present on Admission (POA): [ x ] Yes [ ] No [ ] Unable to determine For continuity of documentation, please document condition throughout progress notes and discharge summary. Thank You. CLINICAL INDICATORS - SIGNS / SYMPTOMS / LABS H&P: MEETS SYSTEMIC INFLAMMATORY RESPONSE SYNDROME CRITERIA FOR SEPSIS, UTI WBC: 09-06-17: 15.0, 09-07-17: 9.1 09-08-17: 12.8 RISK FACTORS: ER DIAGNOSIS: L FEMORAL NECK FRACTURE H&P: HX OF COPD, CHF, HTN, A FIB, SMOKER TREATMENTS: (MAR) ZOSYN, ANCEF, BACTRIM DS, AUGMENTIN (This form is maintained as a part of the permanent medical record) 2014 [employer] All Rights Reserved [email or web address] Office: [phone] [facility]ENTERThierno
[2017-09-08] MEDS ORDERED: Sodium Chloride 0.9% 1,000 ML IV SCH (18:45)
[2017-09-08] MEDS: Apixaban 2.5 MG TAB PO SCH ×2 (20:40)
[2017-09-08] MEDS: Famotidine 20 MG TAB PO SCH (20:40)
[2017-09-08] MEDS: Amoxicillin/Potassium Clav 875 MG TAB PO SCH (20:40)
[2017-09-09] MEDS: Acetaminophen 500 MG TAB PO SCH ×4 (00:48→18:23)
[2017-09-09] MEDS: Ibuprofen 200 MG TAB PO SCH ×4 (00:49→18:23)
[2017-09-09] MEDS: traMADol HCl 50 MG TAB PO SCH ×4 (00:49→18:23)
--- NOTE | 2017-09-09 02:26 | PRG ---
DATE OF SERVICE: 09/09/2017 SUBJECTIVE: The patient is currently on the surgical floor. She is postop day #1 status post open r eduction internal fixation of left femoral neck fracture. The patient was noted to have an acute kid rosaura injury today on her morning labs, which is being treated with gentle fluid resuscitation. Due to her history of CHF, the patient also has history of chronic obstructive pulmonary disease, which was exacerbated at the day of her admission, tonight the nurses report no significant issues, state that she is tolerating a diet and her pain is controlled. PHYSICAL EXAMINATION: VITAL SIGNS: Temperature is 98.1, heart rate 95, blood pressure 173/83, respirations 20, oxygen satu ration is 90% on room air. GENERAL: The patient is resting comfortably in bed. She is asleep. She appears in no distress. ASSESSMENT AND PLAN: 1. Status post ground level fall, status post left femoral neck fracture, status post open reduction internal fixation of same. PLAN: Will be to continue supportive care. We will resume home medications that we were able to and await final placement decision.
[2017-09-09 05:03] LABS: #Lymphocytes 0.7 thou/uL (1.20-3.40); #Monocytes 0.8 thou/uL (0.11-0.59); #Neutrophils 12.3 thou/uL (1.40-6.50); %Basophils 0.1 % (0.0-1.0); %Eosinophils 0.3 % (0.0-10.0); %Lymphocytes 4.8 % (21.0-51.0); %Monocytes 5.7 % (0.0-10.0); Hemoglobin 12.8 g/dL (12.0-16.0); Mean Corpuscular HGB CONC 31.6 g/dL (32.0-36.0); Mean Corpuscular Hemoglobin 28.5 pg (27.0-31.0); Mean Corpuscular Volume 90.2 fl (81.0-99.0); Mean Platelet Volume 6.5 fL (7.4-10.4); Platelet Count 305 thou/uL (130-400); RBC Distribution Width 12.4 % (11.5-14.5); Red Blood Cell (RBC) Count 4.51 mill/uL (4.20-5.40); White Blood Cell (WBC) Count 13.8 thou/uL (4.8-10.8)
[2017-09-09 05:13] LABS: Anion Gap 19 mmol/L (10-20); BUN (Urea Nitrogen) 33 mg/dL (9.8-20.1); Calc. Creatinine Clearance 28 mL/min (70-130); Calcium 8.7 mg/dL (7.8-10.44); Carbon Dioxide 20 mmol/L (23-31); Chloride 105 mmol/L (98-107); Estimated GFR-MDRD 44; Glucose 103 mg/dL (83-110); Magnesium 2.5 mg/dL (1.6-2.6); Phosphorus 4.2 mg/dL (2.3-4.7); Sodium 140 mmol/L (136-145)
[2017-09-09] MEDS: Arformoterol 15 MCG/2 ML NEB NEB SCH ×2 (06:44→18:25)
[2017-09-09] MEDS: Budesonide 0.5 MG/2 ML NEB INH SCH ×2 (06:44→18:25)
[2017-09-09] MEDS: Amlodipine 5 MG TAB PO SCH (08:08)
[2017-09-09] MEDS: Amoxicillin/Potassium Clav 875 MG TAB PO SCH ×2 (08:08→20:33)
[2017-09-09] MEDS: Citalopram 10 MG TAB PO SCH ×2 (08:08→20:31)
[2017-09-09] MEDS: Apixaban 2.5 MG TAB PO SCH ×4 (08:09→20:31)
[2017-09-09] MEDS ORDERED: Furosemide 40 MG TAB PO SCH (08:30)
[2017-09-09] MEDS ORDERED: Bisacodyl 10 MG SUPP PR SCH (09:00)
[2017-09-09] MEDS: Polyethylene Glycol 3350 17 GM Packet PO SCH (09:14)
[2017-09-09] MEDS: Senokot S 8.6-50 MG TAB PO SCH ×2 (09:22→20:34)
--- NOTE | 2017-09-09 10:09 | RAD ---
CHEST ONE VIEW: HISTORY: An 82-year-old female with a history of COPD exacerbation. COMPARISON: 09/06/2017 FINDINGS: Persistent alveolar parenchymal process in the right upper lobe, as well as some linear stranding in the lung bases and bilateral pleural effusions. Atherosclerosis of the aorta with ectasia. Stable f rom prior exam (09/06/2017). IMPRESSION: Stable alveolar parenchymal process in the right upper lobe and bibasilar pleural and parenchymal jaden nges and small pleural effusions. No new process. Unchanged from prior exam. No overt acute edema. POS: ALEXANDERH
--- NOTE | 2017-09-09 11:18 | PRG ---
DATE OF SERVICE: 09/09/2017 SUBJECTIVE: The patient seems to be doing reasonably well. OBJECTIVE: VITAL SIGNS: Temperature is 98.0, pulse 103, blood pressure 178/63, O2 sat 91% on 4 liters. HEENT: Unremarkable. NECK: No JVD. CHEST: Clear without wheeze or rhonchi. CARDIAC: S1 and S2 regular. ABDOMEN: Soft. EXTREMITIES: No edema. IMAGING: Chest x-ray shows no acute changes. ASSESSMENT: 1. Stable severe chronic obstructive pulmonary disease. 2. Status post pinning of the hip fracture. PLAN: The patient is cleared to go to rehab at any time from my standpoint. She needs to continue t o follow up with a head soft sugar operator and consult regarding chronic lung findings.
[2017-09-09 11:29] VITALS: BMI 18.5
[2017-09-09] MEDS: hydrALAZINE 20 MG/ML VIAL SLOW IVP PRN ×2 (12:28→21:14)
[2017-09-09] MEDS ORDERED: Lorazepam 2 MG/ML VIAL SLOW IVP SCH (12:45)
[2017-09-09 14:18] LABS: CKMB 16.5 ng/mL (0-6.6)
--- NOTE | 2017-09-09 15:10 | PRG ---
DATE OF SERVICE: 09/09/2017 SUBJECTIVE: Ms. Acevedo is an 82-year-old woman with history of severe COPD who is postoperative day #2 , status post left femoral neck fracture percutaneous pinning. The patient is status post resolved a cute COPD exacerbation. Currently, she denies any significant dyspnea above baseline for her. She d enies any chest pain. She moves all extremities. Reports adequate pain control. She is tolerating general diet, having normal bowel and urinary function. She is visibly upset today as she is likely unable to attend her son's tomorrow. OBJECTIVE: VITAL SIGNS: Includes blood pressure 178/63, pulse 103, respiratory rate is 24. Maximum temperature in the last 24 hours is 98.1 degrees Fahrenheit, oxygen saturation is 92% on 4 liters by nasal cannu la oxygen. HEENT: Examination reveals normocephalic and atraumatic. Pupils are equal, round, and reactive to l ight and accommodation. Extraocular muscles are intact bilaterally. She has no sclerae icterus pres ent. HEART: Reveals regular rate with no murmurs or gallops auscultated. LUNGS: Reveals bilateral scattered rhonchi. Breathing regular and unlabored. ABDOMEN: Soft, nontender, and nondistended. Bowel sounds in all four quadrants appear normoactive. EXTREMITIES: Reveals 2+ radial and pedal pulses bilaterally. No ankle edema is present. NEUROLOGIC: Examination reveals no focal deficits present. LABORATORY DATA: Laboratory findings today includes CBC with 13,800 white blood cells, hemoglobin an d hematocrit stable at 12.8 and 40.6 respectively. Platelet count is 205,000. Metabolic profile: S odium 140, potassium is 4.0, chloride is 105, bicarbonate is 20, BUN is 33, creatinine is 1.17, gluco se is 103, magnesium 2.5, phosphorus is 4.2, BNP is 555.9. IMPRESSION: 1. Postoperative day #2, status post percutaneous pinning hip fracture. 2. Essential hypertension. 3. Resolved chronic obstructive pulmonary disease exacerbation. PLAN: 1. Optimize pain control. 2. The patient has an acute on chronic anxiety disorder. We will place her on Valium both for anxie ty control as well as muscle spasm relating to her hip fracture. 3. We will continue with physical and occupational therapy. 4. Monitor the patient's urinary output as end point of resuscitation. Above findings and plan discussed with the patient who indicates understanding of the information giv en. She likely will be transferred to rehab tomorrow if she remains hemodynamically stable.
[2017-09-09] MEDS: ALPRAZolam 0.25 MG TAB PO SCH ×2 (16:10→20:28)
[2017-09-09 17:06] LABS: Troponin I 0.117 ng/mL (< 0.028)
[2017-09-09 17:42] LABS: CKMB 14.3 ng/mL (0-6.6); Critical Call CKMBM RESULT DECREASING
[2017-09-09 19:53] LABS: Troponin I 0.126 ng/mL (< 0.028)
[2017-09-09 20:01] LABS: CKMB 14.4 ng/mL (0-6.6)
[2017-09-09] MEDS: Famotidine 20 MG TAB PO SCH (20:32)
[2017-09-10 01:21] LABS: #Lymphocytes 0.8 thou/uL (1.20-3.40); #Monocytes 0.6 thou/uL (0.11-0.59); #Neutrophils 13.4 thou/uL (1.40-6.50); %Basophils 0.1 % (0.0-1.0); %Eosinophils 0.3 % (0.0-10.0); %Lymphocytes 5.3 % (21.0-51.0); %Monocytes 3.7 % (0.0-10.0); %Neutrophils 90.7 % (42.0-75.0); Hemoglobin 12.2 g/dL (12.0-16.0); Mean Corpuscular HGB CONC 32.9 g/dL (32.0-36.0); Mean Corpuscular Hemoglobin 29.3 pg (27.0-31.0); Mean Corpuscular Volume 89.1 fl (81.0-99.0); Mean Platelet Volume 6.1 fL (7.4-10.4); Platelet Count 383 thou/uL (130-400); RBC Distribution Width 12.5 % (11.5-14.5); Red Blood Cell (RBC) Count 4.16 mill/uL (4.20-5.40); White Blood Cell (WBC) Count 14.8 thou/uL (4.8-10.8)
[2017-09-10] MEDS ORDERED: Amiodarone HCl 450 MG, Admixture Fee 1 EACH in Dextrose 5% in Water 250 ML IVPB SCH ×3 (01:30)
[2017-09-10 01:38] LABS: ALT (SGPT) 11 U/L (8-55); AST (SGOT) 47 U/L (5-34); Albumin 3.7 g/dL (3.4-4.8); Alkaline Phosphatase 58 U/L (40-150); Anion Gap 21 mmol/L (10-20); BUN (Urea Nitrogen) 34 mg/dL (9.8-20.1); Bilirubin, Total 0.6 mg/dL (0.2-1.2); Calc. Creatinine Clearance 27 mL/min (70-130); Calcium 8.9 mg/dL (7.8-10.44); Carbon Dioxide 23 mmol/L (23-31); Chloride 99 mmol/L (98-107); Estimated GFR-MDRD 42; Globulin 2.3 g/dL (2.4-3.5); Glucose 144 mg/dL (83-110); Potassium 3.9 mmol/L (3.5-5.1); Sodium 139 mmol/L (136-145)
[2017-09-10 01:42] LABS: Troponin I 0.157 ng/mL (< 0.028)
[2017-09-10] MEDS ORDERED: Amiodarone HCl 150 MG, Admixture Fee 1 EACH in Dextrose 5% in Water 100 ML IVPB SCH ×3 (01:45)
[2017-09-10 01:58] LABS: CKMB 11.5 ng/mL (0-6.6); Critical Call CKMBM RESULT DECREASING
[2017-09-10 02:18] LABS: Magnesium 2.4 mg/dL (1.6-2.6); Phosphorus 5.3 mg/dL (2.3-4.7)
[2017-09-10] MEDS: Acetaminophen 500 MG TAB PO SCH ×4 (04:24→17:45)
[2017-09-10] MEDS: Ibuprofen 200 MG TAB PO SCH ×2 (04:24→07:36)
[2017-09-10] MEDS: traMADol HCl 50 MG TAB PO SCH ×4 (04:24→17:45)
--- NOTE | 2017-09-10 06:33 | PRG ---
DATE OF SERVICE: 09/10/2017 SUBJECTIVE: Ms. Acevedo is an 82-year-old woman with history of severe COPD who is postoperative day #3 status post left femoral neck fracture, percutaneous pinning. She has been stable on the surgical f ayaka. She has been using BiPAP some at night. Earlier today, she required use of benzodiazepine due to anxiety, which she has acute on chronic. She was visibly upset earlier today as she is unlikely to be able to attend her son's tomorrow. I saw her earlier in the evening approximately 8:00 p.m. She was resting comfortably in bed. She did report having episodes of anxiety due to her not being able to attend her son's . I was then called back to the bedside at approximately 1:00 a.m. where staff reported that Ms. Acevedo was complaining of shortness of breath and increased anxiety. EKG, chest x-ray, laboratory studies were done. EKG showed atrial fibrillation with rapid ventricu lar response. The patient was then moved to the IM. Vital signs at the time of onsets, where blood pressure systolic in the 80s and tachycardic at approx imately 150-160 beats per minute, atrial fibrillation. The patient remained awake and alert. She wa s transported to the IMCU and started on amiodarone drip. She then converted to normal sinus rhythm. Subsequently and rapidly vital signs normalized. She remained awake and alert. O2 sat remained gr eater than 92% on 4 liters O2. The patient was discussed with Dr. Smith at time of incident. Dr. Smith agreed with the plan.
[2017-09-10] MEDS: Arformoterol 15 MCG/2 ML NEB NEB SCH ×2 (07:25→19:12)
[2017-09-10] MEDS: Budesonide 0.5 MG/2 ML NEB INH SCH ×2 (07:26→19:13)
--- NOTE | 2017-09-10 08:05 | RAD ---
CHEST 1 VIEW: HISTORY: Dyspnea. COPD. COMPARISON: 09/09/17. FINDINGS: Cardiac silhouette is magnified and upper limits of normal in size. Pulmonary vasculature is also up per limits of normal. Subtle patchy infiltrates projecting over each base in the right upper lobe ar e similar in appearance to the previous study. Mediastinum is midline with aortic calcification. Lungs are otherwise hyperinflated. No evidence of pneumothorax. site monitor leads overlie the c hest. IMPRESSION: Multifocal infiltrates and other findings are stable. POS: ANASTASIA
[2017-09-10] MEDS: Ondansetron ODT 4 MG TAB PO PRN (08:08)
[2017-09-10] MEDS ORDERED: Furosemide 40 MG/4 ML VIAL SLOW IVP SCH (08:15)
[2017-09-10] MEDS ORDERED: Scopolamine 1.5 mg/72 hour Patch TD SCH (09:00)
--- NOTE | 2017-09-10 09:10 | PRG ---
DATE OF SERVICE: 09/10/2017 The patient was moved to telemetry last night because of development of atrial fibrillation with a ra pid ventricular response. She says that she feels better today. PHYSICAL EXAMINATION: VITAL SIGNS: Temperature is 97.7, pulse 83, respiratory failure 25, O2 sat 97% on 4 liters, blood pr essure 130/82. HEENT: Unremarkable. NECK: No JVD. LUNGS: She has diminished, but clear breath sounds. CARDIAC: S1, S2, slightly tachycardic. ABDOMEN: Soft and nontender. EXTREMITIES: No edema. LABORATORY DATA: White blood cell count 14, hematocrit 37, platelet count 383. Sodium 139, potassiu m 3.9, chloride 99, CO2 23, BUN 34, creatinine 1.2, glucose 144, troponin 0.157. BNP 1061. Chest x-ray from earlier today demonstrated fairly clear lung chun except from the right upper lobe findings. ASSESSMENT: 1. Chronic obstructive pulmonary disease with exacerbation - symptoms seem to be currently table. 2. Paroxysmal atrial fibrillation - converted back to sinus rhythm on amiodarone drip. 3. Status post hip fracture and repair. RECOMMENDATIONS: 1. I would recommend Cardiology input. 2. Continue nebulization treatments and low dose IV steroids. 3. Physical therapy when practical.
[2017-09-10] MEDS: ALPRAZolam 0.25 MG TAB PO SCH ×3 (09:17→20:21)
[2017-09-10] MEDS: Amlodipine 5 MG TAB PO SCH (09:17)
[2017-09-10] MEDS: Senokot S 8.6-50 MG TAB PO SCH ×2 (09:18→20:22)
[2017-09-10] MEDS: Polyethylene Glycol 3350 17 GM Packet PO SCH (09:19)
[2017-09-10] MEDS: Citalopram 10 MG TAB PO SCH ×2 (09:19→20:21)
[2017-09-10] MEDS: Apixaban 2.5 MG TAB PO SCH ×4 (09:20→20:21)
[2017-09-10] MEDS: Amoxicillin/Potassium Clav 875 MG TAB PO SCH ×2 (09:23→20:21)
--- NOTE | 2017-09-10 11:01 | PRG ---
DATE OF SERVICE: 09/10/2017 SUBJECTIVE: Ms. Acevedo is an 82-year-old woman with a history of severe COPD who is postoperative day #3 today status post a left femoral neck fracture percutaneous pinning. The patient developed acute atrial fibrillation with rapid ventricular response last night. She was transferred to the Intermediate Care Unit. Amiodarone was started per protocol. Her workup was cons istent with acute congestive failure. The patient converted to normal sinus rhythm overnight. At the time of my evaluation, she is awake a nd alert. She denies any dyspnea in excess of baseline. She denies any chest pain or syncope. OBJECTIVE: VITAL SIGNS: This morning includes blood pressure 138/82, pulse is 83, respiratory rate is 25, tempe rature 97.7 degrees Fahrenheit, oxygen saturation is 97% on 4 liters by nasal cannula oxygen. Note t hat this contrast heart rate in the 150s and irregular last night associated with hypotension. HEENT: Currently, reveals normocephalic and atraumatic. Pupils equal, round, reactive to light and accommodation. She has no sclerae icterus present. No jugular venous distention is noted. HEART: Reveals regular rate and rhythm, no murmurs or gallops auscultated. LUNGS: Her lungs reveals scattered bilateral rhonchi. Breathing regular and unlabored. ABDOMEN: Soft, nontender, nondistended. EXTREMITIES: Reveals 2+ radial and pedal pulses bilaterally. No ankle edema is present. NEUROLOGIC: Reveals no focal deficits present. LABORATORY FINDINGS: Includes a CBC with 14,800 white blood cells, hemoglobin and hematocrit is 12.2 and 37.1 respectively. Platelet count is 383,000. Metabolic profile: Sodium 139, potassium is 3.9 , chloride is 99, bicarbonate is 23, BUN 34, creatinine is 1.21, glucose is 144, magnesium 2.4. Phos phorus is 5.3. BNP is 1061. Chest x-ray reveals a stable right upper lobe pulmonary infiltrates, no pleural effusion or significa nt cardiomegaly is appreciated. IMPRESSION: 1. Acute congestive heart failure exacerbation. 2. Acute atrial fibrillation with rapid ventricular response, now converted to normal sinus rhythm. 3. Stable chronic obstructive pulmonary disease. 4. Stable acute kidney injury. 5. Postoperative day 3, status post percutaneous pinning left femoral neck fracture. Otherwise, the patient is hemodynamically stable at this time. PLAN: 1. Continue gentle diuresis. 2. Correct abnormal electrolytes. 3. Patient is certainly stable and will be transferred to inpatient rehabilitation once bed becomes available. Above findings and plan discussed with the patient and her family at bedside. She indicates understa nding of the information given. I answered her questions.
[2017-09-10] MEDS: Famotidine 20 MG TAB PO SCH (20:21)
[2017-09-11] MEDS: Acetaminophen 500 MG TAB PO SCH ×3 (00:22→13:16)
[2017-09-11] MEDS: traMADol HCl 50 MG TAB PO SCH ×3 (00:22→13:16)
[2017-09-11] MEDS: Budesonide 0.5 MG/2 ML NEB INH SCH (07:22)
[2017-09-11] MEDS: Arformoterol 15 MCG/2 ML NEB NEB SCH (08:08)
[2017-09-11] MEDS: Apixaban 2.5 MG TAB PO SCH ×2 (08:32)
[2017-09-11] MEDS: Citalopram 10 MG TAB PO SCH (08:32)
[2017-09-11] MEDS: ALPRAZolam 0.25 MG TAB PO SCH ×2 (08:32→16:02)
[2017-09-11] MEDS: Amlodipine 5 MG TAB PO SCH (08:32)
[2017-09-11] MEDS: Amoxicillin/Potassium Clav 875 MG TAB PO SCH (08:33)
[2017-09-11] MEDS: Polyethylene Glycol 3350 17 GM Packet PO SCH (08:34)
[2017-09-11] MEDS: Senokot S 8.6-50 MG TAB PO SCH ×2 (08:36→08:45)
[2017-09-11 08:54] LABS: Anion Gap 13 mmol/L (10-20); BUN (Urea Nitrogen) 47 mg/dL (9.8-20.1); Calc. Creatinine Clearance 35 mL/min (70-130); Carbon Dioxide 28 mmol/L (23-31); Chloride 100 mmol/L (98-107); Estimated GFR-MDRD 58; Glucose 115 mg/dL (83-110); Magnesium 2.3 mg/dL (1.6-2.6); Potassium 3.8 mmol/L (3.5-5.1); Sodium 137 mmol/L (136-145)
[2017-09-11] MEDS ORDERED: Atorvastatin Calcium 10 MG TAB PO SCH (09:00)
[2017-09-11] MEDS ORDERED: Furosemide 20 MG TAB PO SCH (09:00)
--- NOTE | 2017-09-11 11:31 | PRG ---
DATE OF SERVICE: 09/11/2017 SUBJECTIVE: The patient is doing better, had no acute complaints. PHYSICAL EXAMINATION: VITAL SIGNS: Temperature 98.0, pulse is 72, respirations 18, O2 sat 100% on 3 liters. HEENT: Unremarkable. NECK: No JVD. LUNGS: Clear, but distant breath sounds. CARDIAC: S1, S2 regular. ABDOMEN: Soft, nontender. EXTREMITIES: No clubbing, cyanosis, or edema. LABORATORY DATA: Sodium 137, potassium 3.8, chloride 100, CO2 28, BUN 47, creatinine 0.9, glucose 11 5. ASSESSMENT: 1. Chronic obstructive pulmonary disease with exacerbation. 2. Paroxysmal atrial fibrillation. 2. Status post hip fracture. PLAN: She is slowly getting better. I am not sure she is to the point where she can be moved to [place] [facility] yet, but I am hoping that will be in short order. We are continuing breathing treatments, antibio tics, and steroids.
[2017-09-11] MEDS ORDERED: predniSONE 5 MG TAB PO SCH (12:00)
--- NOTE | 2017-09-11 13:09 | PRG ---
DATE OF SERVICE: 09/11/2017 SUBJECTIVE: Ms. Acevedo is an 82-year-old woman with history of severe COPD. Postoperative 4 today sta tus post left femoral neck fracture and percutaneous pinning. The patient is recovering from a COPD exacerbation. Overnight, she has remained hemodynamically stable. Urinary output is adequate. She is participating modestly with physical and occupational therapy. She reports adequate pain control. Her dyspnea is at baseline. She denies any syncope or chest pain. OBJECTIVE: VITAL SIGNS: This morning includes blood pressure 152/85, pulse is 71, respiratory rate is 22, tempe rature 98.2 degrees Fahrenheit. Oxygen saturation is 95% on 2 liters by nasal cannula oxygen. HEENT: Reveals normocephalic and atraumatic. Pupils equal, round, and reactive to light and accommo dation. NECK: She has no jugular venous distention noted. HEART: Reveals regular rate and rhythm. No murmurs or gallops auscultated. LUNGS: Reveals bibasilar rhonchi. Breathing regular and unlabored. ABDOMEN: Soft, nontender, nondistended. EXTREMITIES: Reveals 2+ radial and pedal pulses bilaterally. No ankle edema present. NEUROLOGIC: Reveals no focal deficits present. LABORATORY DATA: Today includes metabolic profile: Sodium 137, potassium 3.8, chloride is 100, bica rbonate is 28, BUN 47, creatinine is 0.93. This is improved from 34 and 1.21 yesterday. Glucose tod ay is 115, magnesium 2.3, phosphorus is 3.0. IMPRESSION: 1. Postoperative day 4, status post percutaneous pinning left femoral neck fracture. 2. Resolving acute chronic obstructive pulmonary disease exacerbation. 3. Resolving acute kidney injury. PLAN: Continue physical and occupational therapy. The patient is certainly hemodynamically stable f or transfer to inpatient rehabilitation once bed becomes available. The above findings and plan discussed with the patient and her family at bedside. They all indicated understanding of information given. Note that acute congestive heart failure exacerbation is resolv ed. We will decrease diuresis.
[2017-09-11] MEDS ORDERED: ALPRAZolam 0.25 MG TAB PO PRN (15:05)
[2017-09-11 15:48] VITALS: TEMP 98.1
[2017-09-11 16:16] VITALS: BP 161/86
--- NOTE | 2017-09-11 22:32 | DIS ---
DATE OF ADMISSION: 09/06/2017 DATE OF DISCHARGE: 09/11/2017 ADMITTING PHYSICIAN: Dr. Sachni Smith. DISCHARGING PHYSICIAN: Dr. Sachin Smith. CONSULTING PHYSICIANS: 1. Dr. Anoop Doherty, Orthopedics. 2. Dr. Heriberto Higginbotham, Pulmonary Medicine. REASON FOR HOSPITALIZATION: Ground level fall with left femoral neck fracture. PROCEDURES: Percutaneous pinning. Date of procedure 09/07/2017, surgeon, Dr. Anoop Doherty. DISCHARGE CONDITION: Stable. DISPOSITION: Inpatient rehabilitation. MEDICATIONS: 1. Acetaminophen 1000 mg every 6 hours. 2. Xanax 0.25 mg 3 times daily. 3. Arformoterol 15 mcg nebulizer twice daily. 4. Pulmicort 0.5 mg inhalation twice daily. 5. Pepcid 20 mg once daily. 6. DuoNeb 3 mL nebulizer every 4 hours. 7. MiraLax 17 grams oral daily. ACTIVITY: As tolerated. Patient will use walker. NOURISHMENT: Low-sodium diet. THERAPIES: Patient will continue occupational, physical therapy at the directive of inpatient rehab. BRIEF HISTORY OF HOSPITALIZATION: Ms. Acevedo is an 82-year-old lady who had a ground level fall when s he tripped on her oxygen tubing at her home. She has a history of severe COPD. She was taken to [facility] where a left femoral neck fracture was identified. She was admitted to the hospital by Trauma services. Pulmonary Medicine was consulted for management of chronic pulmonar y issues. Dr. Anoop Doherty, orthopedics, was consulted for management of fractures. She wa s taken to the operating room for fixation of her fracture. She subsequently returned to the floor, where she had an acute COPD exacerbation. She was transferred to the ICU, where she required BiPAP f or oxygenation. Once she was able to be weaned off BiPAP, she was transferred up to the surgical opal or. She then had an episode of atrial fibrillation with rapid ventricular response and was transferr ed back to the intermediate care area. She was converted from atrial fibrillation with RVR with amio fadione. She was identified to have an exacerbation of CHF and underwent appropriate diuresis. On , she was accepted to inpatient rehabilitation. She was deemed stable to transfer to that [facility]. She was transferred to inpatient rehabilitation. She is to follow up with Pulmonary Medicin e and Orthopedic Surgery.
--- NOTE | 2017-09-12 08:50 | EKG ---
Test Reason : Blood Pressure : / mmHG Vent. Rate : 089 BPM Atrial Rate : 089 BPM P-R Int : 122 ms QRS Dur : 082 ms QT Int : 382 ms P-R-T Axes : 065 064 074 degrees QTc Int : 464 ms Sinus rhythm with Premature atrial complexes Nonspecific ST abnormality Abnormal ECG When compared with ECG of 06-SEP-2017 12:06, (Unconfirmed) Fusion complexes are no longer Present Premature ventricular complexes are no longer Present Premature atrial complexes are now Present Criteria for Septal infarct are no longer Present ST no longer depressed in Lateral leads T wave inversion no longer evident in Lateral leads Confirmed by VANESSA CARBAJAL, NEL ([id number]) on 09/12/2017 8:50:02 AM Referred By: VAMSHI Confirmed By:NEL MENDEZ MD
--- NOTE | 2017-09-12 08:51 | EKG ---
Test Reason : Blood Pressure : / mmHG Vent. Rate : 164 BPM Atrial Rate : 115 BPM P-R Int : 000 ms QRS Dur : 094 ms QT Int : 302 ms P-R-T Axes : 000 020 242 degrees QTc Int : 498 ms Atrial fibrillation with rapid ventricular response RSR' or QR pattern in V1 suggests right ventricular conduction delay Marked ST abnormality, possible inferior subendocardial injury Marked ST abnormality, possible anterolateral subendocardial injury Abnormal ECG Confirmed by NEL MENDEZ MD ([id number]) on 09/12/2017 8:50:29 AM Referred By: DIGNA Confirmed By:NEL MENDEZ MD
--- NOTE | 2017-09-12 08:52 | EKG ---
Test Reason : RIGHT SIDED 12-LEAD Blood Pressure : / mmHG Vent. Rate : 162 BPM Atrial Rate : 156 BPM P-R Int : 000 ms QRS Dur : 094 ms QT Int : 300 ms P-R-T Axes : 000 -81 220 degrees QTc Int : 492 ms Atrial fibrillation with rapid ventricular response Left axis deviation RSR' or QR pattern in V1 suggests right ventricular conduction delay Anterolateral infarct , age undetermined Marked ST abnormality, possible inferior subendocardial injury Abnormal ECG Confirmed by VANESSA CARBAJAL, NEL ([id number]) on 09/12/2017 8:52:09 AM Referred By: DIGNA Confirmed By:NEL MENDEZ MD
== END 2017-09-11 16:28 | DRG 480 ==
LOC: ERS 11:57 → IMCU/EMU 16:20 → SURG A 09-08 15:15 → IMCU/EMU 09-10 01:25
PROVIDERS: ADMIT Surgery; ATTEND Surgery
PROC: 0QS736Z Reposition Left Upper Femur with Intramedullary Internal Fixation Device, Percutaneous Approach (ICD-10-PCS; principal; 2017-09-07)
DX: S72.002A Fracture of unspecified part of neck of left femur, initial encounter for closed fracture (principal); J18.9 Pneumonia, unspecified organism; A41.9 Sepsis, unspecified organism; E44.0 Moderate protein-calorie malnutrition; I11.0 Hypertensive heart disease with heart failure; N17.9 Acute kidney failure, unspecified; I50.9 Heart failure, unspecified; I48.0 Paroxysmal atrial fibrillation; J44.0 Chronic obstructive pulmonary disease with (acute) lower respiratory infection; N39.0 Urinary tract infection, site not specified; J44.1 Chronic obstructive pulmonary disease with (acute) exacerbation; Z68.1 Body mass index [BMI] 19.9 or less, adult; Z99.81 Dependence on supplemental oxygen; W01.0XXA Fall on same level from slipping, tripping and stumbling without subsequent striking against object, initial encounter; Z87.891 Personal history of nicotine dependence; F41.9 Anxiety disorder, unspecified; E87.6 Hypokalemia; I25.10 Atherosclerotic heart disease of native coronary artery without angina pectoris
CPT/HCPCS: 36415; 71045; 71250; 71260; 72170; 76001; 80048; 80053; 81003; 81015; 82553; 83735; 83880; 84100; 84484; 85025; 90471; 90670; 93005; 93010; 93306; 94640; 94660; 96374; C1713; C1769; G0009; G0390; G8978-GP-CJ; G8978-GP-CL; G8979-GP-CI; G8979-GP-CJ; J0282; J0360; J0670; J1720; J2001; J2060; J2250; J2543; J2704; J2920; J7050; J7070; J7620; J7626

== ENCOUNTER 2019-01-17 20:12 | Emergency (ER) | payer MEDICARE, OTHER ==
[2019-01-17] MEDS ORDERED: Morphine 4 MG/ML VIAL ONE (20:51)
--- NOTE | 2019-01-17 21:04 | RAD ---
XR Hip Lt 2-3 View History: Hip pain Comparison: Radiograph 2018 Findings: There are 3 percutaneous partially-threaded screws to the left femoral head/neck. Mild dege nerative changes left hip. No acute superimposed fracture or malalignment. Obturator ring appears to be intact. Impression: No acute osseous abnormality.
[2019-01-17 21:17] LABS: #Lymphocytes 1.3 thou/uL (1.20-3.40); #Monocytes 0.7 thou/uL (0.11-0.59); #Neutrophils 7.7 thou/uL (1.40-6.50); %Basophils 0.2 % (0.0-1.0); %Eosinophils 0.5 % (0.0-10.0); %Lymphocytes 13.1 % (21.0-51.0); %Monocytes 6.7 % (0.0-10.0); %Neutrophils 79.5 % (42.0-75.0); Hemoglobin 10.2 g/dL (12.0-16.0); Mean Corpuscular HGB CONC 32.2 g/dL (32.0-36.0); Mean Corpuscular Volume 83.9 fL (78.0-98.0); Platelet Count 321 thou/uL (130-400); RBC Distribution Width 13.7 % (11.5-14.5); Red Blood Cell (RBC) Count 3.78 mill/uL (4.20-5.40); White Blood Cell (WBC) Count 9.7 thou/uL (4.8-10.8)
--- NOTE | 2019-01-17 21:29 | CT ---
CT Cervical Spine WO Con History: Pain. Fall Comparison: CT cervical spine 2016 Findings: Likely an old body of C2 fracture. No acute fracture of the odontoid process. The occipital condyles are intact. There is a fracture anterior arch of C1 with periosteal new bone formation either side fracture with some low-grade healing, subacute to chronic in nature. Multilevel degenerative disc space height loss. No acute rheumatic facet joint widening. Multilevel n eural foraminal narrowing due to hypertrophic osteophyte formation and uncinate process hypertrophy. Lung apices are clear. No prevertebral hematoma. Impression: 1. Healing subacute-chronic anterior arch C1 fracture with some bridging bone. 2. Late subacute-chronic fracture of the base of the odontoid process. 3. No acute displaced fracture or malalignment.
--- NOTE | 2019-01-17 21:34 | CT ---
CT Brain WO Con History: Fall. Comparison: None. Findings: Extensive periventricular and deep white matter microvascular ischemic changes. Healing ant erior arch C1 fracture. Skull base appears be intact. Calvarium is intact. No acute hemorrhage or infarct. No midline shift or mass effect. Impression: Advanced chronic microangiopathic changes. No acute hemorrhage or infarct.
[2019-01-17 21:43] LABS: Anion Gap 13 mmol/L (10-20); BUN (Urea Nitrogen) 29 mg/dL (9.8-20.1); Calc. Creatinine Clearance 0 mL/min (70-130); Calcium 8.6 mg/dL (7.8-10.44); Carbon Dioxide 26 mmol/L (23-31); Chloride 101 mmol/L (98-107); Estimated GFR-MDRD 60; Glucose 94 mg/dL (83-110); Potassium 4.6 mmol/L (3.5-5.1); Sodium 135 mmol/L (136-145)
--- NOTE | 2019-01-17 22:54 | CT ---
CT Lumbar Spine WO Con History: Pain Comparison: None. Findings: Mild ectasia distal thoracic aorta measuring 3.3 cm. There is also focal ectasia infrarenal abdominal aortic measuring up to 2.7 cm. Mild diverticular disease sigmoid colon. No acute fracture of the lumbar spine. Advanced narrowing of the interspinous space with sclerosis an d remodeling the spinous processes. The bones are demineralized. Transverse processes are intact. Moderate degenerative changes both SI joints. Disc osteophyte complexes and osteophyte formation from the facets cause neural foraminal narrowing f rom L2-S1. Impression: Advanced degenerative changes. No acute fracture.
--- NOTE | 2019-01-17 22:59 | CT ---
CT Lower Ext Lt WO Con History: Pain Comparison: None. Findings: 3 percutaneous pins are noted through the femoral neck which are not crowding of the cortex . No acute fracture. Incidental note of a pessary. Moderate diverticular disease sigmoid colon. There is abnormal hemorrhage and edema along the left adductor muscles extending along the iliopsoas tendon and tracking proximally along the iliopsoas musculature. Hamstring tendons appear to be intact. No fascial degloving injury. Impression: Edema of the left iliopsoas muscle and adductors suggesting muscle strains and partial te aring. No acute fracture.
[2019-01-17 23:32] LABS: Bacteria/HPF None Seen HPF (None Seen); Bilirubin Negative (Negative); Blood, Urine Trace (Negative); Clarity Clear (Clear); Glucose, Urine (Dipstick) Normal (Negative); Leukocyte Negative Leu/uL (Negative); Mucous/LPF Rare LPF (<2+); Nitrite Negative (Negative); Protein, Urine (Dipstick) Negative (Neg-Trace); Squamous Epithelial 0-3 HPF (0-3); Urobilinogen Normal mg/dL (Less than 2); WBC/HPF 0-3 HPF (0-3)
[2019-01-18] MEDS ORDERED: Acetaminophen 500 MG TAB ONE (03:21)
[2019-01-18] MEDS ORDERED: Cyclobenzaprine 10 MG TAB ONE (07:33)
== END 2019-01-18 08:22 ==
LOC: ERS 20:12
DX: S76.012A Strain of muscle, fascia and tendon of left hip, initial encounter (principal); S12.000D Unspecified displaced fracture of first cervical vertebra, subsequent encounter for fracture with routine healing; E87.1 Hypo-osmolality and hyponatremia; I48.91 Unspecified atrial fibrillation; J44.9 Chronic obstructive pulmonary disease, unspecified; I11.0 Hypertensive heart disease with heart failure; I50.9 Heart failure, unspecified; Z87.891 Personal history of nicotine dependence; Z79.899 Other long term (current) drug therapy; Z79.82 Long term (current) use of aspirin; Z79.01 Long term (current) use of anticoagulants; X58.XXXA Exposure to other specified factors, initial encounter
CPT/HCPCS: 36415; 51701; 70450; 72125; 72131; 80048; 81003; 81015; 85025; 85652; 96374; A4353; J2270

== ENCOUNTER 2020-05-28 22:12 | Inpatient (IN) | payer MEDICARE, OTHER ==
--- NOTE | 2020-05-28 23:48 | PDOC.HHP ---
Hospitalist HPI - History of Present Illness syncope History of Present Illness: 85 year old female with HTN , HLD, atrial fib on chronic anticoagulation with Eliquis , CAD s/p PCI in the past , follows with Dr Perea , COPD on chronic home 02 3 L continuous , ambulate at baseline with a walker ; admitted after developing sudden loss of consciousness with fall , while walking to the bathroom. Episode was witnessed by her son . She denies any headache, preceding chest pain or sob . She only remember being on the floor and being helped by the son . she denies any tripping. She states no hx of similar episodes in the past . She developed right sided hip pain post event . She improved slightly after fentanyl doses .Pain worse with moving from sided to side in bed . She describe chronic intermittent Cough and headaches in am and late pm but no recent change in pattern . She follows regularly with pulmonary with no recent changes in meds . In the [facility] , CXR was unremarkable , Head CT was negative , Hip Xray shows right superior and inferior ramus fracture EKG shows some PVCs. ,Sodium was 140 , K 4.0 , Troponin 0.019 , HUN 25 , creatinine 1.02 H/H 12.0 Hospitalist ROS - Review of Systems Constitutional: denies: fever, chills, sweats, weakness, malaise, other Eyes: denies: pain, vision change, conjunctivae inflammation, eyelid inflammation, redness, other ENT: denies: ear pain, ear discharge, nose pain, nose discharge, nose congestion, mouth pain, mouth swelling, throat pain, throat swelling, other Respiratory: reports: cough, dry Cardiovascular: denies: chest pain, palpitations, orthopnea, paroxysmal noc. dyspnea, edema, light headedness, other Gastrointestinal: denies: nausea, vomiting, abdominal pain, diarrhea, constipation, melena, hematochezia, other Genitourinary: denies: dysuria, frequency, incontinence, hematuria, retention, other Musculoskeletal: reports: leg pain Hospitalist History - Past Medical History Cardiac: reports: AFIB, CAD, CHF, HTN Pulmonary: reports: COPD, hypertension, lung disease Psych: reports: Depression - Past Surgical History Past Surgical History: reports: Appendectomy, Total Hip Replacement - Family History Family History: reports: no pertinent history - Social History Smoking Status: Former smoker Living Situation: With Family Activity level: uses cane/walker - Exam General Appearance: NAD, awake alert General - other findings: Elderly , hard of hearing Eye: PERRL, anicteric sclera ENT: normocephalic atraumatic, moist mucosa Neck: supple, symmetric, no JVD Heart: RRR, no murmur Respiratory: CTAB, no wheezes, no tachypnea Gastrointestinal: soft, non-tender, no palpable masses, no guarding Extremities: no cyanosis, no clubbing Extremities - other findings: tenderness on palpation of right hip and pubic area Neurological: cranial nerve grossly intact, no focal deficits Psychiatric: normal affect, normal behavior Hospitalist Results - EKG Interpretation EKG: NSR at 79 bpm , multiple PVCs, slight premature P waves Hospitalist H&P A/P - Problem (1) Syncope and collapse Code(s): R55 - SYNCOPE AND COLLAPSE Status: Acute (2) Fall Code(s): W19.XXXA - UNSPECIFIED FALL, INITIAL ENCOUNTER Status: Acute (3) Pubic ramus fracture Code(s): S32.599A - OTH FRACTURE OF UNSP PUBIS, INIT ENCNTR FOR CLOSED FRACTURE Status: Acute (4) COPD (chronic obstructive pulmonary disease) with chronic bronchitis Code(s): J44.9 - CHRONIC OBSTRUCTIVE PULMONARY DISEASE, UNSPECIFIED Status: Acute (5) Atrial fibrillation Code(s): I48.91 - UNSPECIFIED ATRIAL FIBRILLATION Status: Acute (6) CAD (coronary artery disease) Code(s): I25.10 - ATHSCL HEART DISEASE OF [place] CORONARY ARTERY W/O ANG PCTRS Status: Acute - Plan Plan: Syncope - unclear etiology - may be cardiac -will repeat EKG for any dynamic changes - consult cardiology - follow serial troponin trend - though less likely ACS -will obtain carotid doppler and Echo in am -CT head and neck unremarkable noted - place and monitor in telemetry for next 24 hrs Fall with superior and inferior Right Ramus fracture - will consult PT/OT - pain control , start norco prn - will consult case mgt for help at home - may need SNF - follow PT recommendation - c/W Eliquis for DVT risk - obtain Vit D level -No urgent need for orthopedic intervention at this time DVT prop - as above Hx of ATRIAL FIB-Resume Eliquis HTN - controlled , c/w meds COPD - resume 02 - not yet controlled given recurrent early am cough symptoms - will do covid screening but doubt disease since normal CXR - add low dose steroids course Advance directive - not obtained as history taking and discussion limited by severe hard of hearing status , will revisit later
[2020-05-29] MEDS ORDERED: Diabetic Tussin 200 MG/10 ML UDCUP PO PRN
[2020-05-29] MEDS ORDERED: Senokot S 8.6-50 MG TAB PO PRN (00:01)
[2020-05-29] MEDS ORDERED: Bisacodyl 5 MG TAB PO PRN (00:01)
[2020-05-29] MEDS ORDERED: HYDROcodone/Acetaminophen 5/325 mg Tablet PO PRN (00:01)
[2020-05-29] MEDS ORDERED: HYDROcodone/Acetaminophen 7.5/325 mg Tablet PO PRN (00:01)
[2020-05-29 06:56] LABS: SARS-CoV-2 MS2 Positive; SARS-CoV-2 N Gene Negative; SARS-CoV-2 S Gene Negative; SARS-CoV-2 by NAA Not Detected (NotDetected); SARS-CoV-2 orf1ab Negative
[2020-05-29 07:59] LABS: #Eosinphils 0.1 thou/uL (0.0-0.7); #Lymphocytes 1.3 thou/uL (1.20-3.40); #Monocytes 1.2 thou/uL (0.11-0.59); #Neutrophils 6.1 thou/uL (1.40-6.50); %Basophils 0.3 % (0.0-1.0); %Lymphocytes 14.4 % (21.0-51.0); %Neutrophils 70.3 % (42.0-75.0); Hemoglobin 11.3 g/dL (12.0-16.0); Mean Corpuscular Hemoglobin 29.1 pg (27.0-31.0); Mean Corpuscular Volume 91.2 fL (78.0-98.0); Mean Platelet Volume 6.9 fL (7.4-10.4); Platelet Count 235 thou/uL (130-400); Red Blood Cell (RBC) Count 3.88 mill/uL (4.20-5.40); White Blood Cell (WBC) Count 8.7 thou/uL (4.8-10.8)
[2020-05-29 08:01] LABS: Anion Gap 12 mmol/L (10-20); BUN (Urea Nitrogen) 17 mg/dL (9.8-20.1); Calc. Creatinine Clearance 0 mL/min (70-130); Calcium 7.8 mg/dL (7.8-10.44); Carbon Dioxide 28 mmol/L (23-31); Chloride 103 mmol/L (98-107); Glucose 79 mg/dL (83-110); Potassium 3.6 mmol/L (3.5-5.1); Sodium 139 mmol/L (136-145)
[2020-05-29 08:06] LABS: Troponin I 0.011 ng/mL (< 0.028)
--- NOTE | 2020-05-29 09:08 | ULT ---
BILATERAL CAROTID DUPLEX ULTRASOUND: HISTORY: Syncope. TECHNIQUE: Elaine scale, color flow and spectral Doppler imaging of the extracranial artery systems is performed b ilaterally. FINDINGS: There is plaque formation on both sides. The peak systolic velocity in the right ICA measures 64 cm/s with an end-diastolic velocity of 18 cm/ s and a systolic ratio of 1.04. The peak systolic velocity in the left ICA measures 66 cm/s with an end-diastolic velocity of 17 cm/s and a systolic ratio of 0.92. Flow in both vertebral arteries remains antegrade. IMPRESSION: No evidence of hemodynamically significant stenosis in either internal carotid artery. POS: AH
--- NOTE | 2020-05-29 10:31 | RAD ---
AP PELVIS: HISTORY: The patient fell. Pelvic pain. FINDINGS: The bones are demineralized. Right-sided more parasymphyseal fractures are noted. Pelvic ring other rapp shows no abnormalities. Postop changes of the left hip. IMPRESSION: Right-sided parasymphyseal fractures. POS: [facility]
[2020-05-29] MEDS ORDERED: predniSONE 20 MG TAB ONE (10:38)
--- NOTE | 2020-05-29 11:42 | CON ---
DATE OF CONSULTATION: 05/29/2020 REQUESTING PHYSICIAN: Otoniel Cruz MD CONSULTING PHYSICIAN: Suresh Jiang MD REASON FOR CONSULTATION: Right hemipelvis superior and inferior nondisplaced rami fractures. BRIEF CLINICAL HISTORY: Miriam is an 85-year-old female, who was admitted by the medicine team yesterday evening for a syncopal episode which was witnessed by her son. She was taken to [facility] via EMS and then transferred to our hospital for further cardiology evaluation. Plain radiographs of the pelvis obtained in the emergency room demonstrated a superior and inferior nondisplaced rami fractures also with what appears to be cannulated screws in the left femoral neck suggestive of prior fracture, which is remote over the last 4 or 5 years. She will be admitted to telemetry. PAST MEDICAL HISTORY: Significant for chronic atrial fibrillation, coronary atherosclerosis, congestive heart failure, hypertension, COPD, depression. PAST SURGICAL HISTORY: Appendectomy, left hip cannulated screw fixation. MEDICATIONS: Please see medication reconciliation form. PHYSICAL EXAMINATION: GENERAL: This is an elderly, frail-appearing woman, in no apparent distress or discomfort. She is alert, responsive and appropriate with examiner and conversive. She is nonfocal grossly. EXTREMITIES: Visual inspection of the right lower extremity demonstrates her to have discomfort with palpation along the ASIS down to the rami at the pubic symphysis. Range of motion is not assessed due to known underlying fracture. No malrotation or shortening of the lower extremities is noted. She is neurovascularly intact in both lower extremities. IMAGING STUDIES: AP pelvis demonstrates superior and inferior rami fractures. IMPRESSION: 1. Superior and inferior right ramus hemipelvis fractures, stable, osteoporotic in nature with a ground level fall. 2. Syncope, etiology unclear. PLAN: 1. Weightbearing status will be as tolerated. 2. We will follow for another day or so, but at this point, fall precautions, and we will see her tomorrow and probably sign off at that time, closed treatment is recommended for the next 6 to 8 weeks. Job ID: [id number]
[2020-05-29] MEDS ORDERED: Bacitracin 1 PK ONE (12:12)
[2020-05-29] MEDS: Arformoterol 15 MCG/2 ML NEB NEB SCH ×2 (13:13→19:18)
[2020-05-29] MEDS ORDERED: Ondansetron PF 4 MG/2 ML Vial ONE (13:30)
[2020-05-29] MEDS: Ondansetron PF 4 MG/2 ML Vial IVP PRN (13:33)
[2020-05-29] MEDS: Apixaban 2.5 MG TAB PO SCH ×4 (13:38→23:31)
[2020-05-29] MEDS: Citalopram 10 MG TAB PO SCH ×4 (14:07→23:31)
[2020-05-29] MEDS: guaiFENesin ER 600 MG TAB PO SCH ×2 (14:07→21:32)
[2020-05-29] MEDS: predniSONE 20 MG TAB PO SCH (14:07)
[2020-05-29] MEDS ORDERED: hydrALAZINE 20 MG/ML VIAL SLOW IVP PRN (15:21)
--- NOTE | 2020-05-29 16:10 | CON ---
DATE OF CONSULTATION: HISTORY OF PRESENT ILLNESS: Miriam Acevedo is an 85-year-old white female, admitted after a syncopal episode resulting in pelvic fracture. She has history of coronary artery disease and has undergone previous stent placement by Dr. Robert Perea. She also has history of atrial fibrillation after she was hospitalized with a leg fracture during that admission, but apparently converted with IV amiodarone. She is on chronic anticoagulation. She has severe COPD, on home oxygen at 3 L. Yesterday, she was admitted after a fall at home. Apparently, she lost consciousness. She does not remember falling to the ground, only remembers awakening on the ground. She has never had syncope in the past. She denies any chest discomfort or increased shortness of breath. She was taken to the emergency room in [place]. Chest x-ray was unremarkable. Head CT revealed no significant abnormalities and hip x-ray showed right superior and inferior ramus fracture. PAST MEDICAL HISTORY: History of atrial fibrillation in the past, although she is in normal sinus rhythm at this time, coronary artery disease status post stent placement, history of congestive heart failure, hypertension, severe COPD, depression. MEDICATIONS: 1. Fosamax 10 mg daily. 2. Norvasc 5 mg daily. 3. Eliquis 2.5 mg b.i.d. 4. Atorvastatin 10 at bedtime. 5. Citalopram 10 mg b.i.d. 6. Furosemide 20 daily. 7. Prednisone 10 mg at bedtime. 8. DuoNeb q.4 hours. ALLERGIES: NONE. SOCIAL HISTORY: She smoked in the past. She does not drink. OPERATIONS: Appendectomy and total hip replacement. REVIEW OF SYSTEMS: Difficult to obtain with her extreme hardness of hearing. PHYSICAL EXAMINATION: VITAL SIGNS: Blood pressure 185/79, pulse of 65. HEENT: PERRL. NECK: Supple. CHEST: Clear. CARDIAC: S1 and S2 normal without any S3, S4, or murmurs. Carotid upstrokes normal without bruits. ABDOMEN: Normal bowel sounds without tenderness or organomegaly. EXTREMITIES: Revealed no clubbing, cyanosis, or edema. She does have extensive ecchymosis on her arms and legs. NEUROLOGIC: Grossly intact except for hardness of hearing. SKIN: Warm and dry. LABORATORY DATA: EKG revealed normal sinus rhythm with premature atrial beats. Carotid Doppler revealed no hemodynamically significant lesion. Hemoglobin 11.3, hematocrit 35.4, white count 8700, platelets 235,000. Sodium 139, potassium 3.6, chloride 103, carbon dioxide 28, BUN 17, creatinine 0.73. Troponin I is normal. COVID is negative. IMPRESSION: 1. Syncopal episode resulting in pelvic fracture. 2. History of atrial fibrillation when she was hospitalized here in the past. At the present time, she is in sinus rhythm. 3. Coronary artery disease, status post stent placement. 4. Hypertension. 5. Hypercholesterolemia. 6. Former smoker. 7. Severe chronic obstructive pulmonary disease, on home oxygen. PLAN: The patient will be monitored with really no significant arrhythmias. Fast lipid profile will be obtained. Echocardiogram will be performed. Job ID: [id number] MTDD
--- NOTE | 2020-05-29 18:02 | PDOC.HOSPP ---
- Subjective Encounter Date: 05/29/20 Encounter Time: 08:00 Subjective: Patient seen for follow-up regarding syncope. Denies chest pain or shortness of breath. - Objective Vital Signs & Weight: Vital Signs (12 hours) Temp Pulse Pulse Pulse Resp BP BP 05/29/20 17:17 05/29/20 15:00 98.0 F 65 24 H 05/29/20 14:40 97.8 F 67 24 H 05/29/20 10:54 142/73 H 100/65 05/29/20 10:49 66 77 147/73 H 100/65 BP Pulse Ox 05/29/20 17:17 148/67 H 05/29/20 15:00 185/79 H 100 05/29/20 14:40 181/83 H 100 05/29/20 10:54 05/29/20 10:49 Weight Weight 98 lb 3.2 oz Result Diagrams: 05/29/20 07:31 05/29/20 07:31 Additional Labs: I reviewed patient's labs and MAR EKG Reviewed by me: Yes (Normal sinus rhythm on telemetry) Hospitalist ROS - Review of Systems Cardiovascular: denies: chest pain, palpitations, orthopnea, paroxysmal noc. dyspnea, edema, light headedness Gastrointestinal: denies: nausea, vomiting, abdominal pain, diarrhea, constipation, melena, hematochezia - Medication Medications: Active Medications Generic Name Dose Route Start Last Admin Trade Name Freq PRN Reason Stop Dose Admin Apixaban 2.5 mg 05/29/20 09:00 05/29/20 13:38 Apixaban 2.5 Mg Tab PO Not Given BID EILEEN Arformoterol Tartrate 15 mcg 05/29/20 06:30 05/29/20 13:13 Arformoterol 15 Mcg/2 Ml Neb NEB Not Given BID-RT EILEEN Citalopram Hydrobromide 10 mg 05/29/20 09:00 05/29/20 14:07 Citalopram 10 Mg Tab PO 10 mg BID EILEEN Administration Guaifenesin 1,200 mg 05/29/20 09:00 05/29/20 14:07 Guaifenesin Er 600 Mg Tab PO 1,200 mg Q12HR EILEEN Administration Metoprolol Succinate 25 mg 05/29/20 09:00 05/29/20 14:07 Metoprolol Succinate Xl 25 Mg Tab PO 25 mg DAILY EILEEN Administration Ondansetron HCl 4 mg 05/29/20 00:01 05/29/20 13:33 Ondansetron Pf 4 Mg/2 Ml Vial IVP 4 mg Q6H PRN Administration Nausea/Vomiting Prednisone 20 mg 05/29/20 08:00 05/29/20 14:07 Prednisone 20 Mg Tab PO 20 mg QAM-WM EILEEN Administration - Exam General Appearance: awake alert Eye: anicteric sclera ENT: normocephalic atraumatic Neck: supple Heart: RRR Respiratory: CTAB Gastrointestinal: soft, non-tender Skin: no rashes Psychiatric: normal affect Hosp A/P - Plan -Assessment (1) Syncope and collapse Code(s): R55 - SYNCOPE AND COLLAPSE Status: Acute (2) Fall Code(s): W19.XXXA - UNSPECIFIED FALL, INITIAL ENCOUNTER Status: Acute (3) Pubic ramus fracture Code(s): S32.599A - OTH FRACTURE OF UNSP PUBIS, INIT ENCNTR FOR CLOSED FRACTURE Status: Acute (4) COPD (chronic obstructive pulmonary disease) with chronic bronchitis Code(s): J44.9 - CHRONIC OBSTRUCTIVE PULMONARY DISEASE, UNSPECIFIED Status: Chronic (5) Atrial fibrillation Code(s): I48.91 - UNSPECIFIED ATRIAL FIBRILLATION Status: Chronic (6) CAD (coronary artery disease) Code(s): I25.10 - ATHSCL HEART DISEASE OF [place] CORONARY ARTERY W/O ANG PCTRS Status: Tonic - Plan Monitor on telemetry. Cardiology consulted. Orthopedic surgery/PT consulted for pubic ramus fracture. Surgical at this time. Patient may need SNU/rehab. Continue apixaban. Monitor vital signs and titrate antihypertensives as needed. COVID-19 test negative.
[2020-05-29] MEDS: Amlodipine 5 MG TAB PO SCH ×2 (21:32→22:38)
[2020-05-29] MEDS: Atorvastatin Calcium 10 MG TAB PO SCH ×2 (21:32→22:38)
[2020-05-30] MEDS: Citalopram 10 MG TAB PO SCH ×2 (07:22→20:09)
[2020-05-30] MEDS: Apixaban 2.5 MG TAB PO SCH ×2 (07:22→20:08)
[2020-05-30] MEDS: guaiFENesin ER 600 MG TAB PO SCH ×2 (07:22→20:09)
[2020-05-30] MEDS: predniSONE 20 MG TAB PO SCH (07:22)
[2020-05-30] MEDS: Arformoterol 15 MCG/2 ML NEB NEB SCH ×2 (08:48→18:40)
[2020-05-30] MEDS: Ondansetron PF 4 MG/2 ML Vial IVP PRN (08:59)
--- NOTE | 2020-05-30 10:43 | RAD ---
CHEST 1 VIEW: Date: 05/30/2020 HISTORY: Hypoxia, increased respiratory effort. COMPARISON: 09/10/2017. FINDINGS: Monitor leads overlie the chest. Heart size within normal limits. Stable area of parenchymal density in the right upper lobe suprahilar region. Mild flattening of the hemidiaphragms bilaterally suggesti ng some hyperinflation. IMPRESSION: Stable appearing parenchymal density in the right upper lobe. Flattening of the hemidiaphragms sugges ting some hyperinflation and chronic change. Depending upon concern, consider follow-up upright PA an d lateral chest. POS: AH
[2020-05-30] MEDS ORDERED: Mineral Oil ENEMA PR SCH (13:30)
[2020-05-30 14:08] VITALS: BMI 17.2
[2020-05-30] MEDS ORDERED: FLU VACC QS2020-21(65YR UP)/PF 240 MCG/0.7 ML SYRINGE IM ONE (15:15)
--- NOTE | 2020-05-30 15:16 | PDOC.HOSPP ---
- Subjective Encounter Date: 05/30/20 Encounter Time: 07:00 Subjective: Patient seen for follow-up regarding syncope. She denies recurrence of syncope. - Objective Vital Signs & Weight: Vital Signs (12 hours) Temp Pulse Resp BP Pulse Ox 05/30/20 08:48 32 H 82 L 05/30/20 07:19 98.2 F 61 16 173/76 H 98 05/30/20 04:03 97.5 F L 56 L 20 163/68 H 96 Weight Admit Weight 98 lb 3.2 oz Weight 100 lb 3.2 oz I&O: 05/29/20 05/30/20 05/31/20 06:59 06:59 06:59 Intake Total 120 Output Total 100 Balance 20 Result Diagrams: 05/29/20 07:31 05/29/20 07:31 Additional Labs: Labs and MAR reviewed by me EKG Reviewed by me: Yes (Telemetry shows normal sinus rhythm) Hospitalist ROS - Review of Systems Cardiovascular: denies: chest pain, palpitations, orthopnea, paroxysmal noc. dyspnea, edema, light headedness Gastrointestinal: denies: nausea, vomiting, abdominal pain, diarrhea, constipation, melena - Medication Medications: Active Medications Generic Name Dose Route Start Last Admin Trade Name Freq PRN Reason Stop Dose Admin Hydrocodone Bitart/Acetaminophen 2 tab 05/29/20 00:01 05/29/20 23:31 Hydrocodone/Acetaminophen 7.5/325 Mg Tablet PO 2 tab Q4H PRN Administration Severe Pain (7-10) Amlodipine Besylate 5 mg 05/29/20 21:00 05/29/20 22:38 Amlodipine 5 Mg Tab PO Not Given HS EILEEN Apixaban 2.5 mg 05/29/20 09:00 05/30/20 07:22 Apixaban 2.5 Mg Tab PO 2.5 mg BID EILEEN Administration Arformoterol Tartrate 15 mcg 05/29/20 06:30 05/30/20 08:48 Arformoterol 15 Mcg/2 Ml Neb NEB 15 mcg BID-RT EILEEN Administration Atorvastatin Calcium 10 mg 05/29/20 21:00 05/29/20 22:38 Atorvastatin Calcium 10 Mg Tab PO Not Given HS EILEEN Bisacodyl 10 mg 05/29/20 00:01 05/30/20 07:30 Bisacodyl 5 Mg Tab PO 10 mg DAILYPRN PRN Administration Constipation Citalopram Hydrobromide 10 mg 05/29/20 09:00 05/30/20 07:22 Citalopram 10 Mg Tab PO 10 mg BID EILEEN Administration Guaifenesin 1,200 mg 05/29/20 09:00 05/30/20 07:22 Guaifenesin Er 600 Mg Tab PO 1,200 mg Q12HR EILEEN Administration Metoprolol Succinate 25 mg 05/29/20 09:00 05/30/20 07:22 Metoprolol Succinate Xl 25 Mg Tab PO 25 mg DAILY EILEEN Administration Ondansetron HCl 4 mg 05/29/20 00:01 05/30/20 08:59 Ondansetron Pf 4 Mg/2 Ml Vial IVP 4 mg Q6H PRN Administration Nausea/Vomiting Prednisone 20 mg 05/29/20 08:00 05/30/20 07:22 Prednisone 20 Mg Tab PO 20 mg QAM-WM EILEEN Administration - Exam General Appearance: awake alert Eye: anicteric sclera ENT: moist mucosa Neck: supple Heart: RRR Respiratory: CTAB Gastrointestinal: soft, non-tender Skin: no rashes Psychiatric: normal affect, normal behavior Hosp A/P - Plan -Assessment (1) Syncope and collapse Code(s): R55 - SYNCOPE AND COLLAPSE Status: Acute (2) Fall Code(s): W19.XXXA - UNSPECIFIED FALL, INITIAL ENCOUNTER Status: Acute (3) Pubic ramus fracture Code(s): S32.599A - OTH FRACTURE OF UNSP PUBIS, INIT ENCNTR FOR CLOSED FRACTURE Status: Acute (4) COPD (chronic obstructive pulmonary disease) with chronic bronchitis Code(s): J44.9 - CHRONIC OBSTRUCTIVE PULMONARY DISEASE, UNSPECIFIED Status: Chronic (5) Atrial fibrillation Code(s): I48.91 - UNSPECIFIED ATRIAL FIBRILLATION Status: Chronic (6) CAD (coronary artery disease) Code(s): I25.10 - ATHSCL HEART DISEASE OF [place] CORONARY ARTERY W/O ANG PCTRS Status: Tonic - Plan No arrhythmias on telemetry. Appreciate cardiology service input. Patient needs inpatient rehab. Continue apixaban. Monitor vital signs and titrate antihypertensives as needed. COVID-19 test negative.
[2020-05-30] MEDS: Atorvastatin Calcium 10 MG TAB PO SCH (20:08)
[2020-05-30] MEDS: Amlodipine 5 MG TAB PO SCH (20:08)
[2020-05-31 02:43] LABS: Cardiac Risk 2.7 (Less than 4.5)
[2020-05-31] MEDS: Arformoterol 15 MCG/2 ML NEB NEB SCH ×2 (08:14→19:10)
[2020-05-31] MEDS: predniSONE 20 MG TAB PO SCH (09:51)
[2020-05-31] MEDS: guaiFENesin ER 600 MG TAB PO SCH ×2 (09:51→20:37)
[2020-05-31] MEDS: Citalopram 10 MG TAB PO SCH ×2 (09:51→20:37)
[2020-05-31] MEDS: Apixaban 2.5 MG TAB PO SCH ×2 (09:51→20:40)
--- NOTE | 2020-05-31 13:59 | PDOC.HOSPP ---
- Subjective Encounter Date: 05/31/20 Encounter Time: 07:00 Subjective: Patient seen for follow-up regarding syncope. She denies any recurrence of syncope. She denies any chest pain or shortness of breath. - Objective Vital Signs & Weight: Vital Signs (12 hours) Temp Pulse Resp BP Pulse Ox 05/31/20 12:16 99.1 F 58 L 22 H 138/65 99 05/31/20 08:14 56 L 18 96 05/31/20 08:00 97.9 F 58 L 20 155/68 H 99 05/31/20 07:57 96 05/31/20 03:37 97.9 F 59 L 18 143/66 H 99 Weight Admit Weight 98 lb 3.2 oz Weight 100 lb 3.2 oz I&O: 05/30/20 05/31/20 06/01/20 06:59 06:59 06:59 Intake Total 270 Output Total 100 Balance 170 Result Diagrams: 05/29/20 07:31 05/29/20 07:31 Additional Labs: I reviewed patient's labs and MAR EKG Reviewed by me: Yes (Normal sinus rhythm on telemetry) Hospitalist ROS - Review of Systems Cardiovascular: denies: chest pain, palpitations, orthopnea, paroxysmal noc. dyspnea, edema, light headedness Gastrointestinal: denies: nausea, vomiting, abdominal pain, diarrhea, constipation, melena, hematochezia - Medication Medications: Active Medications Generic Name Dose Route Start Last Admin Trade Name Freq PRN Reason Stop Dose Admin Hydrocodone Bitart/Acetaminophen 2 tab 05/29/20 00:01 05/29/20 23:31 Hydrocodone/Acetaminophen 7.5/325 Mg Tablet PO 2 tab Q4H PRN Administration Severe Pain (7-10) Amlodipine Besylate 5 mg 05/29/20 21:00 05/30/20 20:08 Amlodipine 5 Mg Tab PO 5 mg HS EILEEN Administration Apixaban 2.5 mg 05/29/20 09:00 05/31/20 09:51 Apixaban 2.5 Mg Tab PO 2.5 mg BID EILEEN Administration Arformoterol Tartrate 15 mcg 05/29/20 06:30 05/31/20 08:14 Arformoterol 15 Mcg/2 Ml Neb NEB 15 mcg BID-RT EILEEN Administration Atorvastatin Calcium 10 mg 05/29/20 21:00 05/30/20 20:08 Atorvastatin Calcium 10 Mg Tab PO 10 mg HS EILEEN Administration Bisacodyl 10 mg 05/29/20 00:01 05/30/20 07:30 Bisacodyl 5 Mg Tab PO 10 mg DAILYPRN PRN Administration Constipation Citalopram Hydrobromide 10 mg 05/29/20 09:00 05/31/20 09:51 Citalopram 10 Mg Tab PO 10 mg BID EILEEN Administration Guaifenesin 1,200 mg 05/29/20 09:00 05/31/20 09:51 Guaifenesin Er 600 Mg Tab PO 1,200 mg Q12HR EILEEN Administration Metoprolol Succinate 25 mg 05/29/20 09:00 05/31/20 09:51 Metoprolol Succinate Xl 25 Mg Tab PO 25 mg DAILY EILEEN Administration Ondansetron HCl 4 mg 05/29/20 00:01 05/30/20 08:59 Ondansetron Pf 4 Mg/2 Ml Vial IVP 4 mg Q6H PRN Administration Nausea/Vomiting Prednisone 20 mg 05/29/20 08:00 05/31/20 09:51 Prednisone 20 Mg Tab PO 20 mg QAM-WM EILEEN Administration - Exam General Appearance: awake alert Eye: anicteric sclera ENT: moist mucosa Neck: supple Heart: RRR, no rubs Respiratory: CTAB, no wheezes Gastrointestinal: soft, non-tender Skin: no rashes Psychiatric: normal affect Hosp A/P - Plan -Assessment (1) Syncope and collapse Code(s): R55 - SYNCOPE AND COLLAPSE Status: Acute (2) Fall Code(s): W19.XXXA - UNSPECIFIED FALL, INITIAL ENCOUNTER Status: Acute (3) Pubic ramus fracture Code(s): S32.599A - OTH FRACTURE OF UNSP PUBIS, INIT ENCNTR FOR CLOSED FRACTURE Status: Acute (4) COPD (chronic obstructive pulmonary disease) with chronic bronchitis Code(s): J44.9 - CHRONIC OBSTRUCTIVE PULMONARY DISEASE, UNSPECIFIED Status: Chronic (5) Atrial fibrillation Code(s): I48.91 - UNSPECIFIED ATRIAL FIBRILLATION Status: Chronic (6) CAD (coronary artery disease) Code(s): I25.10 - ATHSCL HEART DISEASE OF [place] CORONARY ARTERY W/O ANG PCTRS Status: Tonic - Plan Patient was offered 30-day monitor but refused. Continue metoprolol succinate 25 mg daily. Patient needs inpatient rehab. Continue apixaban. Monitor vital signs and titrate antihypertensives as needed. COVID-19 test negative. Disposition: To inpatient rehab when accepted and bed available.
--- NOTE | 2020-05-31 17:49 | PQF ---
CLINICAL DOCUMENTATION CLARIFICATION FORM: Dear Dr. Cruz Date: 05/31/2020 Please exercise your independent, professional judgment in responding to the clarification form. Clinical indicators are provided on the bottom of this form for your review. Please check appropriate box(es): [ ] Protein Calorie Malnutrition: [ ] Mild [ ] Moderate [ ] Severe [ ] Other Malnutrition (please specify) [ ] Underweight without malnutrition [ ] Other diagnosis [ ] Unable to determine In addition, please specify: Present on Admission (POA): [ ] Yes [ ] No [ ] Unable to determine For continuity of documentation, please document condition throughout progress notes and discharge summary. Thank You. To be completed by CDI/Coding staff for physician review: CLINICAL INDICATORS - SIGNS / SYMPTOMS / LABS / RESULTS AND LOCATION IN MR *Lead Medical Technologist Assessment: 05/30/2020: BMI 17.2 Nutrition diagnosis: Malnutrition r/t COPD, age As Evidenced By unclear diet recall but suspect pt meeting <75% of estimated needs, severe globalized muscle wasting and fat loss present suggestive of severe malnutrition in the context of chronic illness RISK FACTORS / RESULTS AND LOCATION IN MR [facility] HPI: 85 yo female with HTN, CAD, COPD on chronic home O2. A/P: Pubic ramus fracture. TREATMENT / RESULTS AND LOCATION IN MR *Dietary Assessment triggerd for BMI 16.8 *Order 05/30: Supp: Ensure Enlive BID Moderate Malnutrition (in acute illness) Energy Intake: <75% of estimated energy requirement for > 7 days Weight Loss: 1-2%/1 week; 5%/ 1 month; 7.5%/3 months Other: mild body fat loss; mild muscle mass loss; mild fluid accumulation; Severe Malnutrition (in acute illness) Energy Intake: = 50% of estimated energy requirement for = 5 days Weight Loss: >2%/1 week; >5%/1 month; >7.5%/3 months Other: moderate body fat loss; moderate muscle mass loss; moderate- severe fluid accumulation; measurably reduced machine tack puller strength Moderate Malnutrition (in chronic illness) Energy Intake: <75% of estimated energy requirement for =1 month Weight Loss: 5%/1 month; 7.5%/3 months; 10%/6 months; 20%/1 year Other: mild body fat loss; mild muscle mass loss; mild fluid accumulation Severe Malnutrition (in chronic illness) Energy Intake: =75% of estimated energy requirement for =1 month Weight Loss: >5%/1 month; >7.5%/3 months; >10%/6 months; >20%/1 year Other: severe body fat loss; severe muscle mass loss; severe fluid accumulation; measurably reduced machine tack puller strength Thank you, Jenifer Churchill RN, BSN [email or web address] This is a permanent part of the Medical Record [facility]
[2020-05-31] MEDS: Atorvastatin Calcium 10 MG TAB PO SCH (20:39)
[2020-05-31] MEDS: Amlodipine 5 MG TAB PO SCH (20:40)
[2020-06-01] MEDS: Arformoterol 15 MCG/2 ML NEB NEB SCH (07:50)
[2020-06-01] MEDS: Citalopram 10 MG TAB PO SCH (09:10)
[2020-06-01] MEDS: Apixaban 2.5 MG TAB PO SCH (09:10)
[2020-06-01] MEDS: guaiFENesin ER 600 MG TAB PO SCH (09:10)
[2020-06-01] MEDS: predniSONE 20 MG TAB PO SCH (09:10)
--- NOTE | 2020-06-01 15:02 | PDOC.DS.DS ---
Provider - Provider Date of Admission: 05/30/20 09:29 Date of Discharge: 06/01/20 Admitting Provider: Cliff Rogers MD Consultations: Cardiology (Dr. Mcgraw), Orthopedics Primary Care Physician: Nery Ford PA-C Course - Hospital Course Hospital Course: Discharge diagnosis: 1. Syncope 2. Pelvic fracture 3. COVID-19 PCR test negative 4. Severe protein calorie malnutrition, present on admission Hospital course: Patient is a pleasant 85-year-old lady who was admitted to the hospital on May 28, 2020 for syncopal episode and a pelvic fractures. She was seen by cardiology service, who recommended continuing her on beta-casandra. She was also seen by orthopedic surgery service, who recommended conservative management of pelvic fractures. 2D echocardiogram showed left ventricular ejection fracti on of 60 to 65%, E/a flow reversal suggestive of diastolic dysfunction, mild mitral regurgitation, mild aortic regurgitation and mild tricuspid regurgitation. She was evaluated by therapy services and was recommended inpatient rehab. She is being discharged to inpatient rehab. Many thanks for allowing me to participate in your patient's care. Please feel free to contact me with any questions or concerns. Discharge destination: Inpatient rehab Total amount of time spent coordinating this discharge: 31 minutes Resuscitation Status: 05/29/20 00:01 Resuscitation Status Routine Resuscitation Status: FULL: Full Resuscitation - Labs Lab Results: 05/29/20 07:31 05/29/20 07:31 - Physical Exam Vitals: Vital Signs (12 hours) Temp Pulse Pulse Resp BP BP Pulse Ox 06/01/20 11:52 97.9 F 54 L 17 153/67 H 97 06/01/20 09:23 58 L 143/63 H 06/01/20 07:51 98.2 F 60 17 142/65 H 98 06/01/20 07:50 55 L 20 100 06/01/20 03:15 97.9 F 66 20 166/72 H 100 Pulse Ox 06/01/20 11:52 06/01/20 09:23 100 06/01/20 07:51 06/01/20 07:50 06/01/20 03:15 Weight Admit Weight 98 lb 3.2 oz Weight 100 lb 3.2 oz Physical Exam: The patient was seen and examined on the day of discharge. Patient denies chest pain or shortness of breath. Vital signs are stable. S1 and S2 are heard. Lungs are clear to auscultation bilaterally. Plan - Discharge Medications Home Medications: Medication Instructions Recorded Confirmed Type Amlodipine [Norvasc] 5 mg PO DAILY 09/07/17 05/29/20 History Apixaban [Eliquis] 2.5 mg PO BID 09/07/17 05/29/20 History Atorvastatin Calcium [Lipitor] 10 mg PO HS 09/07/17 05/29/20 History Citalopram [CeleXA] 10 mg PO BID 09/07/17 05/29/20 History Furosemide [Lasix] 20 mg PO DAILY 09/07/17 05/29/20 History predniSONE [Prednisone] 10 mg PO HS 09/07/17 05/29/20 History Ipratropium/Albuterol Sulfate 3 ml NEB [id number] neb 09/11/17 05/29/20 Rx [DuoNeb] Alendronate Sodium [Fosamax] 10 mg PO DAILY-AC 05/29/20 05/29/20 History Arformoterol [Brovana] 15 mcg NEB BID-RT neb 06/01/20 Rx Metoprolol Succinate [Toprol XL] 25 mg PO DAILY tab 06/01/20 Rx Allergies: No Known Drug Allergies Allergy (Verified 08/15/19 01:14) PER MD REPORT - Discharge Instructions Activity:: Activity as Tolerated Nourishment:: Heart Healthy Diet - Follow up Plan Referrals: [facility], Yassine Tapia [Other] (Inpatient rehab admit.) Nery Ford PA-C [Primary Care Provider] - 7 Days (Please follow up with a primary care provider in 7days. Call the office to schedule an appointment.) Ramon Mcgraw MD [Active] - (Call for questions) Roney Chung PA-C [Allied Health Professional] - (Call for ortho questions.) Disposition: HOME Quality - Care Measures CORE MEASURES:: N/A
[2020-06-01 15:31] VITALS: BP 150/67; TEMP 99.6
== END 2020-06-01 16:20 | disposition home or self-care (01) | DRG 535 ==
LOC: ERS 22:12 → ERHOLD 23:15 → 2NO 05-29 14:28 → OBSVTOIN 05-30 09:29
PROVIDERS: ADMIT Student in an Organized Health Care Education/Training Program; ATTEND Internal Medicine
DX: S32.591A Other specified fracture of right pubis, initial encounter for closed fracture (principal); E43 Unspecified severe protein-calorie malnutrition; I48.20 Chronic atrial fibrillation, unspecified; Z68.1 Body mass index [BMI] 19.9 or less, adult; I50.9 Heart failure, unspecified; Z96.642 Presence of left artificial hip joint; J44.9 Chronic obstructive pulmonary disease, unspecified; I11.0 Hypertensive heart disease with heart failure; I25.10 Atherosclerotic heart disease of native coronary artery without angina pectoris; Z96.649 Presence of unspecified artificial hip joint; F32.9 Major depressive disorder, single episode, unspecified; E78.00 Pure hypercholesterolemia, unspecified; Z20.822 Contact with and (suspected) exposure to COVID-19; Z79.899 Other long term (current) drug therapy; Z79.01 Long term (current) use of anticoagulants; Z87.891 Personal history of nicotine dependence; Z95.5 Presence of coronary angioplasty implant and graft; Z90.49 Acquired absence of other specified parts of digestive tract; Z79.82 Long term (current) use of aspirin; Z99.81 Dependence on supplemental oxygen; W18.30XA Fall on same level, unspecified, initial encounter
CPT/HCPCS: 36415; 71045; 72170; 80048; 80061; 83735; 84484; 85025; 87635; 93005; 93010; 93306; 93880; 96374; G0378; J2405; J7512; U0003

== ENCOUNTER 2020-06-03 11:11 | Emergency (ER) | payer MEDICARE, OTHER ==
[2020-06-03] MEDS ORDERED: Digoxin 0.5 MG/2 ML AMP ONE (11:36)
[2020-06-03 11:39] LABS: #Lymphocytes 0.9 thou/uL (1.20-3.40); #Monocytes 1.1 thou/uL (0.11-0.59); #Neutrophils 8.2 thou/uL (1.40-6.50); %Eosinophils 0.4 % (0.0-10.0); %Lymphocytes 8.8 % (21.0-51.0); %Monocytes 10.9 % (0.0-10.0); %Neutrophils 79.9 % (42.0-75.0); Hemoglobin 12.1 g/dL (12.0-16.0); Mean Corpuscular Hemoglobin 29.2 pg (27.0-31.0); Mean Corpuscular Volume 91.2 fL (78.0-98.0); Mean Platelet Volume 7.1 fL (7.4-10.4); Platelet Count 259 thou/uL (130-400); RBC Distribution Width 13.1 % (11.5-14.5); Red Blood Cell (RBC) Count 4.13 mill/uL (4.20-5.40); White Blood Cell (WBC) Count 10.2 thou/uL (4.8-10.8)
--- NOTE | 2020-06-03 11:58 | RAD ---
PORTABLE CHEST: HISTORY: Chest pain, possible PR. COMPARISON: 05/30/2020 exam. Heart size is enlarged. Chronic lung changes are seen. Parenchymal changes extending from the right hilum are felt to represent scarring. No focal infiltrates or signs of failure. IMPRESSION: Cardiomegaly with chronic lung change. POS: LEONARD
[2020-06-03 12:02] LABS: ALT (SGPT) 16 U/L (8-55); AST (SGOT) 19 U/L (5-34); Albumin 3.7 g/dL (3.4-4.8); Alkaline Phosphatase 62 U/L (40-110); Anion Gap 14 mmol/L (10-20); BUN (Urea Nitrogen) 29 mg/dL (9.8-20.1); Bilirubin, Total 0.6 mg/dL (0.2-1.2); Calc. Creatinine Clearance 0 mL/min (70-130); Calcium 8.6 mg/dL (7.8-10.44); Carbon Dioxide 30 mmol/L (23-31); Chloride 103 mmol/L (98-107); Globulin 2.2 g/dL (2.4-3.5); Glucose 122 mg/dL (83-110); Potassium 3.6 mmol/L (3.5-5.1); Protein, Total 5.9 g/dL (6.0-8.3); Sodium 143 mmol/L (136-145)
[2020-06-03 12:21] LABS: CKMB 5.1 ng/mL (0-6.6)
--- NOTE | 2020-06-08 13:37 | EKG ---
Test Reason : Blood Pressure : / mmHG Vent. Rate : 150 BPM Atrial Rate : 090 BPM P-R Int : 000 ms QRS Dur : 082 ms QT Int : 308 ms P-R-T Axes : 000 053 260 degrees QTc Int : 486 ms Atrial fibrillation with rapid ventricular response Marked ST abnormality, possible inferior subendocardial injury Abnormal ECG Confirmed by TIRSO CARBAJAL, CJ ([id number]), primer expeditor and drier ULISES BELLO ([id number]) on 06/08/2020 1:37:20 PM Referred By: Confirmed By:CJ CHAHAL MD
== END 2020-06-03 14:56 ==
LOC: ERS 11:11
DX: I48.91 Unspecified atrial fibrillation (principal); Z79.899 Other long term (current) drug therapy; Z79.52 Long term (current) use of systemic steroids; Z79.01 Long term (current) use of anticoagulants; J44.9 Chronic obstructive pulmonary disease, unspecified; I11.0 Hypertensive heart disease with heart failure; I50.9 Heart failure, unspecified; Z87.891 Personal history of nicotine dependence
CPT/HCPCS: 71045; 82553; 84484; 93005; 94760; 96374; J1160

== ENCOUNTER 2021-07-01 19:24 | Inpatient (IN) | payer MEDICARE, OTHER ==
[2021-07-01] MEDS ORDERED: Lorazepam 2 MG/ML VIAL ONE (19:30)
[2021-07-01 19:45] LABS: Actual Bicarbonate (HCO3a) 27.3 mEq/L (22-28); Analyzer IN Cardio ER; Base Excess (BEa) 2.4 mEq/L (-2.0 to +3.0); CO2 Tension 43.4 mmHg (35.0-45.0); Calcium, Ionized (arterial) 1.07 mmol/L (1.12-1.30); Carboxyhemoglobin (COHb) 0.3 gm% (0.0-3.0); Hemoglobin (Hb) 11.6 g/dL (12.0-16.0); O2 Tension (PaO2), arterial 120.3 mmHg (> 60.0); Potassium - ABG Lab 3.41 mmol/L (3.70-5.30); pH, Arterial 7.42 (7.35-7.45)
[2021-07-01 19:47] LABS: Puncture Site RRA
[2021-07-01 20:03] LABS: Bilirubin Negative (Negative); Blood, Urine Negative (Negative); Clarity Clear (Clear); Glucose, Urine (Dipstick) Normal (Negative); Ketone, Urine Negative (Negative); Leukocyte Negative Leu/uL (Negative); Nitrite Negative (Negative); Protein, Urine (Dipstick) 20 mg/dL (Neg-Trace); Specific Gravity, Urine 1.016 (1.002-1.036); Urobilinogen Normal mg/dL (Less than 2); pH, Urine 6.5 (5.0-9.0)
[2021-07-01 20:43] LABS: #Lymphocytes 0.5 thou/uL (1.20-3.40); #Monocytes 0.1 thou/uL (0.11-0.59); %Eosinophils 0.1 % (0.0-10.0); %Lymphocytes 4.7 % (21.0-51.0); %Monocytes 1.2 % (0.0-10.0); Hemoglobin 11.6 g/dL (12.0-16.0); Mean Corpuscular HGB CONC 32.6 g/dL (32.0-36.0); Mean Corpuscular Hemoglobin 30.4 pg (27.0-31.0); Mean Corpuscular Volume 93.2 fL (78.0-98.0); Mean Platelet Volume 7.1 fL (7.4-10.4); Platelet Count 259 thou/uL (130-400); RBC Distribution Width 12.5 % (11.5-14.5); Red Blood Cell (RBC) Count 3.81 mill/uL (4.20-5.40); White Blood Cell (WBC) Count 9.6 thou/uL (4.8-10.8)
[2021-07-01 21:07] LABS: ALT (SGPT) 13 U/L (8-55); AST (SGOT) 20 U/L (5-34); Albumin 3.4 g/dL (3.4-4.8); Alkaline Phosphatase 72 U/L (40-110); Anion Gap 17 mmol/L (10-20); BUN (Urea Nitrogen) 21 mg/dL (9.8-20.1); Bilirubin, Total 0.4 mg/dL (0.2-1.2); CK (CPK) 207 U/L (29-168); Calc. Creatinine Clearance 0 mL/min (70-130); Calcium 8.3 mg/dL (7.8-10.44); Carbon Dioxide 26 mmol/L (23-31); Chloride 100 mmol/L (98-107); Globulin 2.2 g/dL (2.4-3.5); Glucose 162 mg/dL (83-110); Lipase 53 U/L (8-78); Potassium 3.5 mmol/L (3.5-5.1); Protein, Total 5.6 g/dL (5.8-8.1); Sodium 139 mmol/L (136-145)
[2021-07-01] MEDS ORDERED: Ondansetron PF 4 MG/2 ML Vial IVP PRN (21:30)
[2021-07-01] MEDS ORDERED: Sodium Chloride 0.9% 1,000 ML IV SCH (21:30)
[2021-07-01] MEDS ORDERED: Ondansetron ODT 4 MG TAB SL PRN (21:30)
[2021-07-02] MEDS ORDERED: Ondansetron PF 4 MG/2 ML Vial IVP PRN (00:29)
[2021-07-02 00:58] LABS: Lactic Acid 3.2 mmol/L (0.5-2.2)
[2021-07-02 07:32] LABS: #Lymphocytes 0.4 thou/uL (1.20-3.40); #Monocytes 0.2 thou/uL (0.11-0.59); #Neutrophils 3.1 thou/uL (1.40-6.50); %Basophils 0.1 % (0.0-1.0); %Eosinophils 0.2 % (0.0-10.0); %Lymphocytes 9.8 % (21.0-51.0); %Monocytes 5.3 % (0.0-10.0); %Neutrophils 84.6 % (42.0-75.0); Hemoglobin 9.9 g/dL (12.0-16.0); Mean Corpuscular HGB CONC 33.7 g/dL (32.0-36.0); Mean Corpuscular Hemoglobin 31.6 pg (27.0-31.0); Mean Corpuscular Volume 93.9 fL (78.0-98.0); Mean Platelet Volume 7.2 fL (7.4-10.4); Platelet Count 225 thou/uL (130-400); RBC Distribution Width 12.5 % (11.5-14.5); Red Blood Cell (RBC) Count 3.12 mill/uL (4.20-5.40); White Blood Cell (WBC) Count 3.7 thou/uL (4.8-10.8)
[2021-07-02 07:38] LABS: SARS-CoV-2 NAA Rapid Test Not Detected (NotDetected)
[2021-07-02 07:55] LABS: Anion Gap 11 mmol/L (10-20); BUN (Urea Nitrogen) 20 mg/dL (9.8-20.1); Calc. Creatinine Clearance 0 mL/min (70-130); Calcium 7.9 mg/dL (7.8-10.44); Carbon Dioxide 26 mmol/L (23-31); Glucose 138 mg/dL (83-110); Potassium 3.9 mmol/L (3.5-5.1)
[2021-07-02 08:04] LABS: Chloride 106 mmol/L (98-107); Sodium 139 mmol/L (136-145)
[2021-07-02] MEDS ORDERED: Dexamethasone 10 MG/ML VIAL SLOW IVP SCH (09:00)
[2021-07-02] MEDS ORDERED: FLU VACC QS2021-22(65YR UP)/PF 240 MCG/0.7 ML SYRINGE IM ONE (09:45)
[2021-07-02] MEDS: Metoprolol Tartrate 25 MG TAB PO SCH ×2 (11:29→20:53)
[2021-07-02] MEDS: Apixaban 2.5 MG TAB PO SCH ×2 (11:29→20:53)
[2021-07-02] MEDS: predniSONE 20 MG TAB PO SCH (11:29)
[2021-07-02] MEDS ORDERED: Lorazepam 2 MG/ML VIAL ONE (16:09)
[2021-07-02] MEDS: Lorazepam 2 MG/ML VIAL SLOW IVP PRN ×2 (16:16→20:53)
[2021-07-02] MEDS: Sodium Chloride 0.9% 1,000 ML IV SCH ×2 (16:37→20:58)
[2021-07-02] MEDS: Arformoterol 15 MCG/2 ML NEB NEB SCH (19:15)
[2021-07-02] MEDS: Atorvastatin Calcium 10 MG TAB PO SCH (20:53)
[2021-07-03] MEDS: Levothyroxine Sodium 25 MCG TAB PO SCH (05:24)
[2021-07-03 07:23] LABS: #Monocytes 0.7 thou/uL (0.11-0.59); #Neutrophils 5.2 thou/uL (1.40-6.50); %Basophils 0.1 % (0.0-1.0); %Eosinophils 0.3 % (0.0-10.0); %Lymphocytes 14.6 % (21.0-51.0); %Monocytes 9.4 % (0.0-10.0); %Neutrophils 75.5 % (42.0-75.0); Hemoglobin 9.7 g/dL (12.0-16.0); Mean Corpuscular HGB CONC 31.9 g/dL (32.0-36.0); Mean Corpuscular Hemoglobin 30.3 pg (27.0-31.0); Platelet Count 221 thou/uL (130-400); RBC Distribution Width 12.8 % (11.5-14.5); Red Blood Cell (RBC) Count 3.18 mill/uL (4.20-5.40); White Blood Cell (WBC) Count 6.9 thou/uL (4.8-10.8)
[2021-07-03] MEDS: Arformoterol 15 MCG/2 ML NEB NEB SCH ×2 (07:24→18:42)
[2021-07-03 07:40] LABS: Anion Gap 9 mmol/L (10-20); BUN (Urea Nitrogen) 25 mg/dL (9.8-20.1); Calc. Creatinine Clearance 38 mL/min (70-130); Calcium 8.1 mg/dL (7.8-10.44); Carbon Dioxide 27 mmol/L (23-31); Chloride 107 mmol/L (98-107); Glucose 83 mg/dL (83-110); Potassium 3.6 mmol/L (3.5-5.1); Sodium 139 mmol/L (136-145)
[2021-07-03] MEDS: Apixaban 2.5 MG TAB PO SCH ×2 (09:34→19:55)
[2021-07-03] MEDS: Metoprolol Tartrate 25 MG TAB PO SCH ×2 (09:34→19:55)
[2021-07-03] MEDS: predniSONE 20 MG TAB PO SCH (09:34)
[2021-07-03] MEDS: Lorazepam 2 MG/ML VIAL SLOW IVP PRN ×2 (12:43→19:55)
[2021-07-03] MEDS: hydrALAZINE 20 MG/ML VIAL SLOW IVP PRN ×2 (18:03→23:13)
[2021-07-03] MEDS: Atorvastatin Calcium 10 MG TAB PO SCH (19:55)
[2021-07-04] MEDS: Lorazepam 2 MG/ML VIAL SLOW IVP PRN ×3 (03:11→21:59)
[2021-07-04 05:24] LABS: Anion Gap 14 mmol/L (10-20); BUN (Urea Nitrogen) 23 mg/dL (9.8-20.1); Calc. Creatinine Clearance 37 mL/min (70-130); Calcium 8.6 mg/dL (7.8-10.44); Carbon Dioxide 26 mmol/L (23-31); Chloride 102 mmol/L (98-107); Glucose 73 mg/dL (83-110); Potassium 3.7 mmol/L (3.5-5.1); Sodium 138 mmol/L (136-145)
[2021-07-04 05:29] LABS: #Lymphocytes 1.2 thou/uL (1.20-3.40); #Monocytes 0.9 thou/uL (0.11-0.59); #Neutrophils 5.5 thou/uL (1.40-6.50); %Basophils 0.5 % (0.0-1.0); %Eosinophils 0.3 % (0.0-10.0); %Lymphocytes 15.6 % (21.0-51.0); %Monocytes 11.8 % (0.0-10.0); %Neutrophils 71.9 % (42.0-75.0); Hemoglobin 11.3 g/dL (12.0-16.0); Mean Corpuscular HGB CONC 31.5 g/dL (32.0-36.0); Mean Corpuscular Hemoglobin 30.2 pg (27.0-31.0); Mean Corpuscular Volume 95.7 fL (78.0-98.0); Mean Platelet Volume 7.2 fL (7.4-10.4); Platelet Count 266 thou/uL (130-400); Red Blood Cell (RBC) Count 3.74 mill/uL (4.20-5.40); White Blood Cell (WBC) Count 7.6 thou/uL (4.8-10.8)
[2021-07-04] MEDS: Arformoterol 15 MCG/2 ML NEB NEB SCH ×2 (07:34→19:00)
[2021-07-04] MEDS: Apixaban 2.5 MG TAB PO SCH ×2 (10:14→23:34)
[2021-07-04] MEDS: predniSONE 20 MG TAB PO SCH (10:14)
[2021-07-04] MEDS: Levothyroxine Sodium 25 MCG TAB PO SCH (10:14)
[2021-07-04] MEDS: Metoprolol Tartrate 25 MG TAB PO SCH ×2 (10:14→23:34)
[2021-07-04] MEDS: Lidocaine Viscous Sol 2% 15 ml UD Cup SSW PRN (21:56)
[2021-07-04] MEDS ORDERED: Metoprolol Tartrate 5 MG/5 ML VIAL IVP SCH (22:15)
[2021-07-04] MEDS: Atorvastatin Calcium 10 MG TAB PO SCH (23:34)
[2021-07-04] MEDS ORDERED: Amiodarone 150 MG, Admixture Fee 1 EACH in Dextrose 5% in Water 100 ML IVPB SCH (23:45)
[2021-07-04] MEDS ORDERED: Amiodarone 450 MG, Admixture Fee 1 EACH in Dextrose 5% in Water 250 ML IVPB SCH (23:59)
[2021-07-05 00:12] LABS: ALT (SGPT) 15 U/L (8-55); AST (SGOT) 22 U/L (5-34); Albumin 3.1 g/dL (3.4-4.8); Alkaline Phosphatase 56 U/L (40-110); Bilirubin, Direct 0.2 mg/dL (0.1-0.3); Bilirubin, Total 0.7 mg/dL (0.2-1.2); Protein, Total 5.2 g/dL (5.8-8.1)
[2021-07-05] MEDS: Levothyroxine Sodium 25 MCG TAB PO SCH (06:27)
[2021-07-05] MEDS: Arformoterol 15 MCG/2 ML NEB NEB SCH ×2 (07:19→20:16)
[2021-07-05] MEDS: Apixaban 2.5 MG TAB PO SCH ×2 (08:29→20:56)
[2021-07-05] MEDS: predniSONE 20 MG TAB PO SCH (08:30)
[2021-07-05] MEDS: Metoprolol Tartrate 25 MG TAB PO SCH ×2 (08:30→20:56)
[2021-07-05] MEDS: Lorazepam 2 MG/ML VIAL SLOW IVP PRN ×2 (12:11→15:15)
[2021-07-05] MEDS: hydrALAZINE 20 MG/ML VIAL SLOW IVP PRN (15:13)
[2021-07-05] MEDS: Lidocaine Viscous Sol 2% 15 ml UD Cup SSW PRN (20:56)
[2021-07-05] MEDS: Atorvastatin Calcium 10 MG TAB PO SCH (20:56)
[2021-07-05] MEDS: Acetaminophen 325 MG TAB PO PRN (20:56)
[2021-07-06] MEDS: Acetaminophen 325 MG TAB PO PRN (05:38)
[2021-07-06] MEDS: Levothyroxine Sodium 25 MCG TAB PO SCH (05:38)
[2021-07-06] MEDS: Arformoterol 15 MCG/2 ML NEB NEB SCH ×2 (07:01→19:00)
[2021-07-06] MEDS: Metoprolol Tartrate 25 MG TAB PO SCH ×2 (09:04→20:58)
[2021-07-06] MEDS: predniSONE 20 MG TAB PO SCH (09:05)
[2021-07-06] MEDS: Apixaban 2.5 MG TAB PO SCH (09:05)
[2021-07-06] MEDS: Lorazepam 2 MG/ML VIAL SLOW IVP PRN ×3 (18:08→23:22)
[2021-07-06] MEDS: Atorvastatin Calcium 10 MG TAB PO SCH (20:58)
[2021-07-06] MEDS: Enoxaparin Sodium 40 MG/0.4 ML SYRINGE SC SCH (20:58)
[2021-07-07] MEDS ORDERED: Metoprolol Tartrate 25 MG TAB PO SCH (02:32)
[2021-07-07] MEDS: Lorazepam 2 MG/ML VIAL SLOW IVP PRN ×2 (03:07→23:07)
[2021-07-07] MEDS: Levothyroxine Sodium 25 MCG TAB PO SCH (06:21)
[2021-07-07] MEDS: Arformoterol 15 MCG/2 ML NEB NEB SCH ×2 (09:11→20:47)
[2021-07-07] MEDS: Enoxaparin Sodium 40 MG/0.4 ML SYRINGE SC SCH ×2 (11:05→23:07)
[2021-07-07] MEDS: predniSONE 20 MG TAB PO SCH (11:06)
[2021-07-07 11:10] VITALS: BMI 15.6
[2021-07-07] MEDS ORDERED: Amlodipine 10 MG TAB PO SCH (13:00)
[2021-07-07] MEDS: Atorvastatin Calcium 10 MG TAB PO SCH (23:07)
[2021-07-08] MEDS: Lorazepam 2 MG/ML VIAL SLOW IVP PRN (05:43)
[2021-07-08] MEDS: Levothyroxine Sodium 25 MCG TAB PO SCH (05:43)
[2021-07-08] MEDS: Arformoterol 15 MCG/2 ML NEB NEB SCH ×2 (07:38→18:40)
[2021-07-08] MEDS: Enoxaparin Sodium 40 MG/0.4 ML SYRINGE SC SCH (09:48)
[2021-07-08] MEDS: Amlodipine 5 MG TAB PO SCH (09:49)
[2021-07-08] MEDS: predniSONE 20 MG TAB PO SCH (09:49)
[2021-07-08] MEDS ORDERED: Digoxin 0.5 MG/2 ML AMP SLOW IVP SCH (18:15)
[2021-07-08 18:48] LABS: SARS-CoV-2 PCR by NAA Not Detected (NotDetected)
[2021-07-08] MEDS: Atorvastatin Calcium 10 MG TAB PO SCH (21:31)
[2021-07-08] MEDS: Apixaban 2.5 MG TAB PO SCH (21:31)
[2021-07-08] MEDS: Acetaminophen 325 MG TAB PO PRN (21:31)
[2021-07-09] MEDS: Levothyroxine Sodium 25 MCG TAB PO SCH (05:27)
[2021-07-09] MEDS: Acetaminophen 325 MG TAB PO PRN ×2 (05:27→21:19)
[2021-07-09] MEDS: Arformoterol 15 MCG/2 ML NEB NEB SCH ×2 (07:24→19:40)
[2021-07-09] MEDS: Amlodipine 5 MG TAB PO SCH (10:47)
[2021-07-09] MEDS: Apixaban 2.5 MG TAB PO SCH (10:47)
[2021-07-09] MEDS: predniSONE 20 MG TAB PO SCH (10:48)
[2021-07-09] MEDS ORDERED: Amlodipine 5 MG TAB PO SCH (16:30)
[2021-07-09] MEDS ORDERED: Electrolyte Replacement Protocol 1 EACH FS SCH (17:30)
[2021-07-09] MEDS ORDERED: Electrolyte Replacement Protocol FS PRN (17:30)
[2021-07-09] MEDS: Doxycycline 100 MG CAP PO SCH (21:18)
[2021-07-09] MEDS: Atorvastatin Calcium 10 MG TAB PO SCH (21:18)
[2021-07-10 04:30] LABS: #Lymphocytes 1.2 thou/uL (1.20-3.40); #Monocytes 0.7 thou/uL (0.11-0.59); #Neutrophils 4.6 thou/uL (1.40-6.50); %Basophils 0.1 % (0.0-1.0); %Eosinophils 0.2 % (0.0-10.0); %Lymphocytes 17.8 % (21.0-51.0); %Monocytes 11.3 % (0.0-10.0); %Neutrophils 70.5 % (42.0-75.0); Hemoglobin 12.5 g/dL (12.0-16.0); Mean Corpuscular HGB CONC 32.6 g/dL (32.0-36.0); Mean Corpuscular Hemoglobin 30.8 pg (27.0-31.0); Mean Corpuscular Volume 94.6 fL (78.0-98.0); Mean Platelet Volume 6.9 fL (7.4-10.4); Platelet Count 285 thou/uL (130-400); RBC Distribution Width 12.7 % (11.5-14.5); Red Blood Cell (RBC) Count 4.05 mill/uL (4.20-5.40); White Blood Cell (WBC) Count 6.5 thou/uL (4.8-10.8)
[2021-07-10 04:40] LABS: Prothrombin Time 13.2 sec (12.0-14.7)
[2021-07-10 04:52] LABS: Anion Gap 13 mmol/L (10-20); BUN (Urea Nitrogen) 19 mg/dL (9.8-20.1); Calc. Creatinine Clearance 34 mL/min (70-130); Calcium 8.7 mg/dL (7.8-10.44); Carbon Dioxide 30 mmol/L (23-31); Chloride 96 mmol/L (98-107); Glucose 85 mg/dL (83-110); Magnesium 1.9 mg/dL (1.6-2.6); Phosphorus 3.2 mg/dL (2.3-4.7); Potassium 3.8 mmol/L (3.5-5.1); Sodium 135 mmol/L (136-145)
[2021-07-10] MEDS: Levothyroxine Sodium 25 MCG TAB PO SCH (05:28)
[2021-07-10] MEDS ORDERED: Magnesium 2 GM/50 ML 2 GM in Premix Bag 1 BAG IVPB SCH (07:00)
[2021-07-10] MEDS: predniSONE 20 MG TAB PO SCH (08:06)
[2021-07-10] MEDS: Doxycycline 100 MG CAP PO SCH ×2 (08:06→21:52)
[2021-07-10] MEDS: Arformoterol 15 MCG/2 ML NEB NEB SCH ×2 (08:22→19:13)
[2021-07-10] MEDS ORDERED: Amlodipine 10 MG TAB PO SCH (09:00)
[2021-07-10] MEDS: Acetaminophen 325 MG TAB PO PRN (21:51)
[2021-07-10] MEDS: Atorvastatin Calcium 10 MG TAB PO SCH (21:52)
[2021-07-11] MEDS: Levothyroxine Sodium 25 MCG TAB PO SCH (05:28)
[2021-07-11] MEDS ORDERED: Sodium Chloride 0.9% 1,000 ML IV SCH (06:00)
[2021-07-11] MEDS ORDERED: Lidocaine 1% (PF) 30 ML VIAL ONE (06:08)
[2021-07-11] MEDS ORDERED: Gentamicin 80 MG/2 ML VIAL ONE (06:08)
[2021-07-11] MEDS ORDERED: CEFAZOLIN 1 GM VIAL ONE (06:08)
[2021-07-11] MEDS ORDERED: ceFAZolin 2 GM/DEX 5% 100 ML BAG ONE (06:17)
[2021-07-11] MEDS ORDERED: Ketamine 50 MG/ML (10ML VIAL) ONE (06:45)
[2021-07-11] MEDS ORDERED: Propofol 1,000 MG/100 ML VIAL IV ONE (06:45)
[2021-07-11] MEDS ORDERED: Phenylephrine 10 MG/ML VIAL ONE (06:50)
[2021-07-11] MEDS ORDERED: GLYCOPYRROLATE/PF 0.2 MG/ML VIAL ONE (07:15)
[2021-07-11] MEDS ORDERED: Iopamidol 370 76% 50 ML VIAL FS ONE (08:50)
[2021-07-11] MEDS ORDERED: Metoprolol Tartrate 100 MG TAB PO SCH (09:15)
[2021-07-11] MEDS ORDERED: Dronedarone HCl 400 MG TAB PO SCH (09:15)
[2021-07-11] MEDS ORDERED: Acetaminophen/Codeine 30-300mg Tablet PO PRN ×2 (09:17)
[2021-07-11] MEDS ORDERED: Ondansetron PF 4 MG/2 ML Vial ONE (09:56)
[2021-07-11] MEDS ORDERED: Ondansetron PF 4 MG/2 ML Vial IVP SCH (10:45)
[2021-07-11] MEDS: predniSONE 20 MG TAB PO SCH (11:08)
[2021-07-11] MEDS: Doxycycline 100 MG CAP PO SCH ×2 (11:08→20:39)
[2021-07-11] MEDS: Dronedarone HCl 400 MG TAB PO SCH (15:59)
[2021-07-11] MEDS: Cephalexin 250 MG CAP PO SCH ×2 (18:28→20:39)
[2021-07-11] MEDS: Arformoterol 15 MCG/2 ML NEB NEB SCH (19:02)
[2021-07-11] MEDS: Metoprolol Tartrate 50 MG TAB PO SCH (20:39)
[2021-07-11] MEDS: Atorvastatin Calcium 10 MG TAB PO SCH (20:39)
[2021-07-12] MEDS: Levothyroxine Sodium 25 MCG TAB PO SCH (06:20)
[2021-07-12] MEDS: Metoprolol Tartrate 50 MG TAB PO SCH (08:08)
[2021-07-12] MEDS: Dronedarone HCl 400 MG TAB PO SCH (08:08)
[2021-07-12] MEDS: Cephalexin 250 MG CAP PO SCH ×2 (08:08→14:04)
[2021-07-12] MEDS: predniSONE 20 MG TAB PO SCH (08:08)
[2021-07-12] MEDS: Doxycycline 100 MG CAP PO SCH (08:08)
[2021-07-12] MEDS: Arformoterol 15 MCG/2 ML NEB NEB SCH ×3 (10:40→10:45)
[2021-07-12 11:41] VITALS: BP 133/67; TEMP 98.1
== END 2021-07-12 14:50 | DRG 981 ==
LOC: ERS 19:24 → ERHOLD 21:10 → 2NO 07-02 06:12 → OBSVTOIN 07-02 13:33 → 2NO 07-03 16:58
PROVIDERS: ADMIT Internal Medicine; ATTEND Internal Medicine
PROC: 0JH606Z Insertion of Pacemaker, Dual Chamber into Chest Subcutaneous Tissue and Fascia, Open Approach (ICD-10-PCS; principal; 2021-07-11)
PROC: 02HK3JZ Insertion of Pacemaker Lead into Right Ventricle, Percutaneous Approach (ICD-10-PCS; 2021-07-11)
PROC: 02H63JZ Insertion of Pacemaker Lead into Right Atrium, Percutaneous Approach (ICD-10-PCS; 2021-07-11)
DX: J96.21 Acute and chronic respiratory failure with hypoxia (principal); Z20.822 Contact with and (suspected) exposure to COVID-19; G92.8 Other toxic encephalopathy; J44.1 Chronic obstructive pulmonary disease with (acute) exacerbation; E87.2 Acidosis; I13.0 Hypertensive heart and chronic kidney disease with heart failure and stage 1 through stage 4 chronic kidney disease, or unspecified chronic kidney disease; E44.0 Moderate protein-calorie malnutrition; Z68.1 Body mass index [BMI] 19.9 or less, adult; E87.1 Hypo-osmolality and hyponatremia; F03.91 Unspecified dementia, unspecified severity, with behavioral disturbance; I49.5 Sick sinus syndrome; R79.89 Other specified abnormal findings of blood chemistry; E88.09 Other disorders of plasma-protein metabolism, not elsewhere classified; I48.0 Paroxysmal atrial fibrillation; E78.5 Hyperlipidemia, unspecified; I25.10 Atherosclerotic heart disease of native coronary artery without angina pectoris; Z96.649 Presence of unspecified artificial hip joint; R13.10 Dysphagia, unspecified; F32.A Depression, unspecified; I50.9 Heart failure, unspecified; N18.2 Chronic kidney disease, stage 2 (mild); D53.9 Nutritional anemia, unspecified; E03.9 Hypothyroidism, unspecified; H91.90 Unspecified hearing loss, unspecified ear; Z79.890 Hormone replacement therapy; Z95.5 Presence of coronary angioplasty implant and graft; Z28.21 Immunization not carried out because of patient refusal; Z99.81 Dependence on supplemental oxygen; Z79.899 Other long term (current) drug therapy; Z79.01 Long term (current) use of anticoagulants; Z90.49 Acquired absence of other specified parts of digestive tract; Z78.1 Physical restraint status
CPT/HCPCS: 33208; 36415; 36416; 36600; 51701; 71045; 75820; 80048; 80053; 80076; 81003; 82550; 82805; 83605; 83690; 83735; 83880; 84100; 84439; 84443; 84484; 85025; 85610; 87040; 93005; 93010; 94640; 96374; 96376; 97139; C1785; C1898; G0378; J0282; J0360; J0690; J1580; J1650; J2001; J2060; J2370; J2405; J2704; J3475; J7050; J7070; J7512; J7620; Q9967; U0002; U0003; U0005

== ENCOUNTER 2021-07-18 15:09 | Inpatient (IN) | payer MEDICARE, OTHER ==
[2021-07-18] MEDS ORDERED: Ondansetron PF 4 MG/2 ML Vial IVP PRN (18:39)
[2021-07-18] MEDS ORDERED: HYDROcodone/Acetaminophen 10/325 mg Tablet PO PRN (18:39)
[2021-07-18 18:41] VITALS: BMI 14.1
[2021-07-18] MEDS ORDERED: Piperacillin/Tazobactam 3.375 GM in Sodium Chloride 0.9% 100 ML IVPB SCH (20:00)
[2021-07-18 20:45] LABS: Lactic Acid 1.3 mmol/L (0.5-2.2)
[2021-07-18] MEDS ORDERED: Vancomycin HCl 500 MG in Sodium Chloride 0.9% 100 ML IVPB SCH (21:00)
[2021-07-18] MEDS: busPIRone HCl 5 MG TAB PO SCH (21:06)
[2021-07-18] MEDS: Metoprolol Tartrate 50 MG TAB PO SCH (21:06)
[2021-07-18] MEDS: Atorvastatin Calcium 10 MG TAB PO SCH (21:06)
[2021-07-18] MEDS: ALPRAZolam 0.25 MG TAB PO SCH (21:06)
[2021-07-19] MEDS: Piperacillin/Tazobactam 3.375 GM in Sodium Chloride 0.9% 100 ML IVPB SCH ×3 (00:17→16:01)
[2021-07-19 04:23] LABS: #Lymphocytes 0.4 thou/uL (1.20-3.40); #Monocytes 0.3 thou/uL (0.11-0.59); #Neutrophils 4.3 thou/uL (1.40-6.50); %Eosinophils 0.1 % (0.0-10.0); %Lymphocytes 8.4 % (21.0-51.0); %Monocytes 6.1 % (0.0-10.0); %Neutrophils 85.4 % (42.0-75.0); Hemoglobin 8.7 g/dL (12.0-16.0); Mean Corpuscular HGB CONC 31.9 g/dL (32.0-36.0); Mean Corpuscular Hemoglobin 31.4 pg (27.0-31.0); Mean Corpuscular Volume 98.4 fL (78.0-98.0); Mean Platelet Volume 6.9 fL (7.4-10.4); Platelet Count 263 thou/uL (130-400); RBC Distribution Width 13.7 % (11.5-14.5); Red Blood Cell (RBC) Count 2.78 mill/uL (4.20-5.40); White Blood Cell (WBC) Count 5.1 thou/uL (4.8-10.8)
[2021-07-19 04:45] LABS: Anion Gap 15 mmol/L (10-20); BUN (Urea Nitrogen) 39 mg/dL (9.8-20.1); Calc. Creatinine Clearance 26 mL/min (70-130); Calcium 8.2 mg/dL (7.8-10.44); Carbon Dioxide 28 mmol/L (23-31); Chloride 99 mmol/L (98-107); Glucose 128 mg/dL (83-110); Sodium 137 mmol/L (136-145)
[2021-07-19] MEDS: Levothyroxine Sodium 25 MCG TAB PO SCH (05:32)
[2021-07-19] MEDS: Arformoterol 15 MCG/2 ML NEB NEB SCH ×2 (06:53→18:49)
[2021-07-19] MEDS ORDERED: FLU VACC QS2021-22(65YR UP)/PF 240 MCG/0.7 ML SYRINGE IM ONE (09:00)
[2021-07-19] MEDS ORDERED: Digoxin 0.5 MG/2 ML AMP SLOW IVP SCH (10:30)
[2021-07-19] MEDS: Dronedarone HCl 400 MG TAB PO SCH ×2 (10:56→16:02)
[2021-07-19] MEDS: ALPRAZolam 0.25 MG TAB PO SCH ×3 (10:56→21:47)
[2021-07-19] MEDS: busPIRone HCl 5 MG TAB PO SCH ×2 (10:56→18:37)
[2021-07-19] MEDS: Metoprolol Tartrate 50 MG TAB PO SCH ×3 (10:57→21:47)
[2021-07-19] MEDS: Citalopram 10 MG TAB PO SCH (10:57)
[2021-07-19] MEDS: Furosemide 20 MG TAB PO SCH (10:57)
[2021-07-19 21:40] LABS: Vancomycin, Random 3.4 ug/mL (See Comment)
[2021-07-19] MEDS: Atorvastatin Calcium 10 MG TAB PO SCH (21:47)
[2021-07-19] MEDS ORDERED: Vancomycin HCl 750 MG in Sodium Chloride 0.9% 250 ML 250 ML IVPB SCH (22:00)
[2021-07-20] MEDS: Piperacillin/Tazobactam 3.375 GM in Sodium Chloride 0.9% 100 ML IVPB SCH ×3 (00:21→16:28)
[2021-07-20 04:34] LABS: #Lymphocytes 0.8 thou/uL (1.20-3.40); #Neutrophils 6.5 thou/uL (1.40-6.50); %Basophils 0.1 % (0.0-1.0); %Eosinophils 0.1 % (0.0-10.0); %Lymphocytes 9.5 % (21.0-51.0); %Monocytes 12.3 % (0.0-10.0); Hemoglobin 7.8 g/dL (12.0-16.0); Mean Corpuscular HGB CONC 30.5 g/dL (32.0-36.0); Mean Corpuscular Hemoglobin 30.1 pg (27.0-31.0); Mean Corpuscular Volume 98.8 fL (78.0-98.0); Mean Platelet Volume 6.7 fL (7.4-10.4); Platelet Count 277 thou/uL (130-400); RBC Distribution Width 14.2 % (11.5-14.5); Red Blood Cell (RBC) Count 2.58 mill/uL (4.20-5.40); White Blood Cell (WBC) Count 8.3 thou/uL (4.8-10.8)
[2021-07-20 05:15] LABS: Anion Gap 16 mmol/L (10-20); BUN (Urea Nitrogen) 45 mg/dL (9.8-20.1); Calc. Creatinine Clearance 24 mL/min (70-130); Carbon Dioxide 24 mmol/L (23-31); Chloride 102 mmol/L (98-107); Glucose 84 mg/dL (83-110); Potassium 4.9 mmol/L (3.5-5.1); Sodium 137 mmol/L (136-145)
[2021-07-20] MEDS: Levothyroxine Sodium 25 MCG TAB PO SCH (05:39)
[2021-07-20] MEDS: Arformoterol 15 MCG/2 ML NEB NEB SCH ×2 (06:46→18:30)
[2021-07-20] MEDS: Dronedarone HCl 400 MG TAB PO SCH ×2 (08:26→16:28)
[2021-07-20] MEDS: ALPRAZolam 0.25 MG TAB PO SCH ×3 (08:27→21:25)
[2021-07-20] MEDS: busPIRone HCl 5 MG TAB PO SCH ×2 (08:27→21:25)
[2021-07-20] MEDS: Saccharomyces boulardii 250 MG CAP PO SCH (08:28)
[2021-07-20] MEDS: Furosemide 20 MG TAB PO SCH (08:28)
[2021-07-20] MEDS: Citalopram 10 MG TAB PO SCH (08:28)
[2021-07-20] MEDS: Metoprolol Tartrate 50 MG TAB PO SCH ×2 (08:28→21:25)
[2021-07-20 15:38] LABS: SARS-CoV-2 PCR by NAA Not Detected (NotDetected)
[2021-07-20] MEDS: Atorvastatin Calcium 10 MG TAB PO SCH (21:25)
[2021-07-20 21:39] LABS: Vancomycin, Random 8.3 ug/mL (See Comment)
[2021-07-20] MEDS ORDERED: Vancomycin HCl 750 MG in Sodium Chloride 0.9% 250 ML 250 ML IVPB SCH (22:30)
[2021-07-21] MEDS: Piperacillin/Tazobactam 3.375 GM in Sodium Chloride 0.9% 100 ML IVPB SCH ×3 (00:05→16:30)
[2021-07-21 04:24] LABS: #Lymphocytes 0.9 thou/uL (1.20-3.40); #Monocytes 0.9 thou/uL (0.11-0.59); #Neutrophils 6.8 thou/uL (1.40-6.50); %Basophils 0.2 % (0.0-1.0); %Eosinophils 0.2 % (0.0-10.0); %Lymphocytes 10.3 % (21.0-51.0); %Monocytes 10.2 % (0.0-10.0); Hemoglobin 8.2 g/dL (12.0-16.0); Mean Corpuscular HGB CONC 32.5 g/dL (32.0-36.0); Mean Corpuscular Hemoglobin 31.6 pg (27.0-31.0); Mean Corpuscular Volume 97.4 fL (78.0-98.0); Mean Platelet Volume 6.5 fL (7.4-10.4); Platelet Count 294 thou/uL (130-400); RBC Distribution Width 13.7 % (11.5-14.5); Red Blood Cell (RBC) Count 2.59 mill/uL (4.20-5.40); White Blood Cell (WBC) Count 8.6 thou/uL (4.8-10.8)
[2021-07-21 04:48] LABS: Anion Gap 14 mmol/L (10-20); BUN (Urea Nitrogen) 48 mg/dL (9.8-20.1); Calc. Creatinine Clearance 22 mL/min (70-130); Calcium 8.2 mg/dL (7.8-10.44); Carbon Dioxide 28 mmol/L (23-31); Chloride 100 mmol/L (98-107); Glucose 81 mg/dL (83-110); Potassium 4.2 mmol/L (3.5-5.1); Sodium 138 mmol/L (136-145)
[2021-07-21] MEDS: Levothyroxine Sodium 25 MCG TAB PO SCH (05:06)
[2021-07-21] MEDS: Arformoterol 15 MCG/2 ML NEB NEB SCH ×2 (08:00→19:10)
[2021-07-21] MEDS: Citalopram 10 MG TAB PO SCH (10:52)
[2021-07-21] MEDS: Metoprolol Tartrate 50 MG TAB PO SCH ×2 (10:52→21:23)
[2021-07-21] MEDS: ALPRAZolam 0.25 MG TAB PO SCH ×3 (10:52→21:24)
[2021-07-21] MEDS: Dronedarone HCl 400 MG TAB PO SCH ×2 (10:52→16:30)
[2021-07-21] MEDS: busPIRone HCl 5 MG TAB PO SCH ×2 (10:52→21:23)
[2021-07-21] MEDS: Furosemide 20 MG TAB PO SCH (10:52)
[2021-07-21] MEDS: Saccharomyces boulardii 250 MG CAP PO SCH (10:52)
[2021-07-21] MEDS: Atorvastatin Calcium 10 MG TAB PO SCH (21:23)
[2021-07-21 22:40] LABS: Vancomycin, Random 9.9 ug/mL (See Comment)
[2021-07-21] MEDS ORDERED: Vancomycin HCl 750 MG in Sodium Chloride 0.9% 250 ML 250 ML IVPB SCH (23:30)
[2021-07-22] MEDS: Piperacillin/Tazobactam 3.375 GM in Sodium Chloride 0.9% 100 ML IVPB SCH ×4 (03:45→19:57)
[2021-07-22] MEDS: Levothyroxine Sodium 25 MCG TAB PO SCH (04:57)
[2021-07-22] MEDS ORDERED: Sodium Chloride 0.9% 1,000 ML IV SCH (06:00)
[2021-07-22] MEDS ORDERED: Gentamicin 80 MG/2 ML VIAL ONE (06:55)
[2021-07-22] MEDS ORDERED: CEFAZOLIN 1 GM VIAL ONE (06:55)
[2021-07-22] MEDS ORDERED: Lidocaine 1% (PF) 30 ML VIAL ONE (07:22)
[2021-07-22] MEDS ORDERED: Lidocaine 1% w/Epinephrine 1:100K 20 ML VIAL ONE (07:22)
[2021-07-22] MEDS: Arformoterol 15 MCG/2 ML NEB NEB SCH ×2 (07:32→19:10)
[2021-07-22] MEDS ORDERED: Vancomycin HCl 500 MG VIAL ONE (09:20)
[2021-07-22] MEDS ORDERED: Fentanyl 250 MCG/5 ML VIAL ONE (10:04)
[2021-07-22] MEDS ORDERED: Amiodarone 150 MG/3 ML VIAL ONE ×4 (10:06→10:28)
[2021-07-22] MEDS ORDERED: Amiodarone 450 MG in Dextrose 5% in Water 250 ML IVPB SCH (10:45)
[2021-07-22] MEDS ORDERED: Amiodarone 150 MG in Dextrose 5% in Water 100 ML IVPB SCH (10:45)
[2021-07-22] MEDS ORDERED: Furosemide 20 MG/2 ML VIAL SLOW IVP SCH (11:00)
[2021-07-22] MEDS ORDERED: Metoprolol Tartrate 25 MG TAB PO SCH (11:15)
[2021-07-22] MEDS: ALPRAZolam 0.25 MG TAB PO SCH ×4 (12:06→20:19)
[2021-07-22] MEDS: busPIRone HCl 5 MG TAB PO SCH ×2 (12:09→20:19)
[2021-07-22] MEDS: Metoprolol Tartrate 50 MG TAB PO SCH ×2 (12:10→20:19)
[2021-07-22] MEDS: Dronedarone HCl 400 MG TAB PO SCH (12:10)
[2021-07-22] MEDS: Lorazepam 2 MG/ML VIAL SLOW IVP PRN (12:31)
[2021-07-22] MEDS: Saccharomyces boulardii 250 MG CAP PO SCH (12:32)
[2021-07-22] MEDS: Citalopram 10 MG TAB PO SCH (12:32)
[2021-07-22] MEDS: Furosemide 20 MG TAB PO SCH (12:32)
[2021-07-22] MEDS: Cephalexin 250 MG CAP PO SCH ×3 (17:11→20:19)
[2021-07-22] MEDS: Atorvastatin Calcium 10 MG TAB PO SCH (20:19)
[2021-07-22 23:45] LABS: Vancomycin, Random 18.1 ug/mL (See Comment)
[2021-07-23] MEDS: Piperacillin/Tazobactam 3.375 GM in Sodium Chloride 0.9% 100 ML IVPB SCH ×2 (00:47→18:40)
[2021-07-23] MEDS: Lorazepam 2 MG/ML VIAL SLOW IVP PRN (02:21)
[2021-07-23] MEDS: Levothyroxine Sodium 25 MCG TAB PO SCH (06:43)
[2021-07-23] MEDS: Arformoterol 15 MCG/2 ML NEB NEB SCH ×2 (06:59→22:02)
[2021-07-23 09:46] LABS: #Lymphocytes 0.7 thou/uL (1.20-3.40); #Monocytes 0.6 thou/uL (0.11-0.59); #Neutrophils 6.1 thou/uL (1.40-6.50); %Eosinophils 0.2 % (0.0-10.0); %Lymphocytes 8.9 % (21.0-51.0); %Monocytes 7.6 % (0.0-10.0); %Neutrophils 83.3 % (42.0-75.0); Hemoglobin 9.3 g/dL (12.0-16.0); Mean Corpuscular HGB CONC 33.5 g/dL (32.0-36.0); Mean Corpuscular Hemoglobin 32.5 pg (27.0-31.0); Mean Corpuscular Volume 97.2 fL (78.0-98.0); Mean Platelet Volume 6.6 fL (7.4-10.4); Platelet Count 300 thou/uL (130-400); RBC Distribution Width 14.2 % (11.5-14.5); Red Blood Cell (RBC) Count 2.85 mill/uL (4.20-5.40); White Blood Cell (WBC) Count 7.3 thou/uL (4.8-10.8)
[2021-07-23 09:59] LABS: Anion Gap 16 mmol/L (10-20); BUN (Urea Nitrogen) 40 mg/dL (9.8-20.1); Calc. Creatinine Clearance 25 mL/min (70-130); Calcium 8.3 mg/dL (7.8-10.44); Carbon Dioxide 26 mmol/L (23-31); Chloride 101 mmol/L (98-107); Glucose 83 mg/dL (83-110); Potassium 3.9 mmol/L (3.5-5.1); Sodium 139 mmol/L (136-145)
[2021-07-23] MEDS: Furosemide 20 MG TAB PO SCH (11:02)
[2021-07-23] MEDS: busPIRone HCl 5 MG TAB PO SCH ×2 (11:02→21:56)
[2021-07-23] MEDS: Citalopram 10 MG TAB PO SCH (11:02)
[2021-07-23] MEDS: Saccharomyces boulardii 250 MG CAP PO SCH (11:02)
[2021-07-23] MEDS: ALPRAZolam 0.25 MG TAB PO SCH ×3 (11:03→21:55)
[2021-07-23] MEDS: Amiodarone 200 MG TAB PO SCH ×3 (11:03→22:02)
[2021-07-23] MEDS: Metoprolol Tartrate 50 MG TAB PO SCH ×2 (11:03→21:55)
[2021-07-23] MEDS: Cephalexin 250 MG CAP PO SCH ×3 (11:03→21:57)
[2021-07-23] MEDS ORDERED: Furosemide 20 MG/2 ML VIAL SLOW IVP SCH (18:15)
[2021-07-23] MEDS: Acetaminophen 325 MG TAB PO PRN (21:57)
[2021-07-23] MEDS: Atorvastatin Calcium 10 MG TAB PO SCH (22:02)
[2021-07-24] MEDS: Levothyroxine Sodium 25 MCG TAB PO SCH (05:16)
[2021-07-24] MEDS: Arformoterol 15 MCG/2 ML NEB NEB SCH (07:43)
[2021-07-24] MEDS: Saccharomyces boulardii 250 MG CAP PO SCH (09:35)
[2021-07-24] MEDS: Amiodarone 200 MG TAB PO SCH ×3 (09:35→20:01)
[2021-07-24] MEDS: Metoprolol Tartrate 50 MG TAB PO SCH ×2 (09:35→20:01)
[2021-07-24] MEDS: Citalopram 10 MG TAB PO SCH (09:36)
[2021-07-24] MEDS: Furosemide 20 MG TAB PO SCH (09:36)
[2021-07-24] MEDS: Cephalexin 250 MG CAP PO SCH ×3 (09:36→20:02)
[2021-07-24] MEDS: busPIRone HCl 5 MG TAB PO SCH ×2 (09:36→20:02)
[2021-07-24] MEDS: ALPRAZolam 0.25 MG TAB PO SCH ×3 (09:36→20:01)
[2021-07-24] MEDS: Acetaminophen 325 MG TAB PO PRN ×2 (10:07→15:44)
[2021-07-24] MEDS: Atorvastatin Calcium 10 MG TAB PO SCH (20:02)
[2021-07-24 21:09] VITALS: BP 159/76; TEMP 96.5
[2021-07-29] MEDS ORDERED: Apixaban 2.5 MG TAB PO SCH (09:00)
== END 2021-07-24 21:02 | disposition home or self-care (01) | DRG 260 ==
LOC: 2NO 17:52 → OBSVTOIN 18:50 → 2NO 07-22 22:49
PROVIDERS: ADMIT Internal Medicine; ATTEND Internal Medicine
PROC: 02WA3MZ Revision of Cardiac Lead in Heart, Percutaneous Approach (ICD-10-PCS; principal; 2021-07-22)
PROC: 0JC60ZZ Extirpation of Matter from Chest Subcutaneous Tissue and Fascia, Open Approach (ICD-10-PCS; 2021-07-22)
DX: T82.120A Displacement of cardiac electrode, initial encounter (principal); J96.21 Acute and chronic respiratory failure with hypoxia; E43 Unspecified severe protein-calorie malnutrition; L03.114 Cellulitis of left upper limb; D62 Acute posthemorrhagic anemia; Z68.1 Body mass index [BMI] 19.9 or less, adult; R64 Cachexia; J44.1 Chronic obstructive pulmonary disease with (acute) exacerbation; G93.40 Encephalopathy, unspecified; Y83.8 Other surgical procedures as the cause of abnormal reaction of the patient, or of later complication, without mention of misadventure at the time of the procedure; Z20.822 Contact with and (suspected) exposure to COVID-19; I49.5 Sick sinus syndrome; I25.10 Atherosclerotic heart disease of native coronary artery without angina pectoris; Z96.649 Presence of unspecified artificial hip joint; F41.9 Anxiety disorder, unspecified; I48.0 Paroxysmal atrial fibrillation; I10 Essential (primary) hypertension; E78.5 Hyperlipidemia, unspecified; F32.A Depression, unspecified; Z99.81 Dependence on supplemental oxygen; Z79.890 Hormone replacement therapy; Z79.52 Long term (current) use of systemic steroids; Z79.01 Long term (current) use of anticoagulants; Z79.51 Long term (current) use of inhaled steroids; Z95.5 Presence of coronary angioplasty implant and graft; Z90.49 Acquired absence of other specified parts of digestive tract; Z87.891 Personal history of nicotine dependence
CPT/HCPCS: 33215; 36415; 71045; 71046; 71250; 80048; 80202; 83605; 85025; 87040; 87070; 87205; 93005; 93010; 93306; 94640; J0282; J0690; J1160; J1580; J1940; J2001; J2060; J2543; J3010; J3370; J3490; J7050; J7070; U0003; U0005